=== PATIENT | female | born 1970 | race Caucasian/White ===

== ENCOUNTER → 2018-05-16 13:15 | Outpatient (CLI) | payer MEDICAID, SELFPAY ==
--- NOTE | 2018-05-16 13:22 | XR_ITS ---
XR foot wt bearing LT 3V HISTORY: ITS.REASON: pain ORDERING PHYSICIAN: Soraya Sousa DPM PATIENT AGE: 47 years COMPARISON: None FINDINGS: There is mild pes planus. No fracture or dislocation or other significant anomalies evident. There is a small calcaneal spur IMPRESSION: Pes planus otherwise negative
--- NOTE | 2018-05-16 13:22 | XR_ITS ---
XR foot wt bearing RT 3V HISTORY: ITS.REASON: pain ORDERING PHYSICIAN: Soraya Sousa DPM PATIENT AGE: 47 years COMPARISON: None FINDINGS: There is moderate pes planus with mild superior subluxation of the navicular at the talonavicular joint. A metallic screw is present at the talonavicular joint anteriorly. There are 2 large johan within the mid to anterior aspect of the calcaneus. A tunneled lucency is noted at this region as well as an oblique area of sclerosis suggesting prior osteotomy. IMPRESSION: Moderate pes planus with postsurgical changes
== END ==
PROVIDERS: PCP Internal Medicine Addiction Medicine; Visit Provider Podiatrist
DX: M79.672 Pain in left foot (principal); M79.671 Pain in right foot
CPT/HCPCS: 73630

== ENCOUNTER → 2018-06-08 12:55 | Outpatient (CLI) | payer MEDICAID, SELFPAY ==
--- NOTE | 2018-06-08 12:57 | MR_ITS ---
MR ankle RT wo/w con CLINICAL INDICATION: Pain in foot and ankle, prior reconstructive surgery with ankle collapse. ITS.REASON: pain, surgical planning ORDERING PHYSICIAN: Soraya Sousa DPM PATIENT AGE: 47 years Comparison: 05/16/2018 TECHNIQUE: Routine multiplanar multiecho sequences are performed without and with gadolinium enhancement FINDINGS: MRI ankle The anterior tibiofibular and posterior tibiofibular ligaments appear intact. The posterior talofibular ligament is intact. There is tear of the anterior talofibular ligament. The deltoid ligament appears intact. There is thinning of the peroneal brevis tendon along the distal aspect of the fibula consistent with a split tear. Artifact is present from a staple in the calcaneus. This portion of the peroneal tendons are obscured from the artifact. The tibialis posterior tendon is not identified distally consistent with tear of the posterior tibialis. The flexor digitorum longus is also not identified inferior to the medial malleoli region also suggesting tear. The flexor hallucis longus does appear to be intact. There is pes planus. Artifact is present at the talonavicular joint from prior fixation. The extensor tendons appear intact. Small amount of fluid is present at the talonavicular joint superiorly and there is some edema of the tip of the lateral malleolus. IMPRESSION: 1. Tear of the ATFL 2. Thinning of the peroneal brevis tendon along the distal aspect of the fibula suspicious for a split tear proximally. 3. Pes planus with complete tear suspected of the posterior tibialis and flexor digitorum longus
--- NOTE | 2018-06-08 12:57 | MR_ITS ---
MR foot RT wo/w con CLINICAL INDICATION: Pain, ankle collapse, ITS.REASON: pain, surgical planning ORDERING PHYSICIAN: Soraya Sousa DPM PATIENT AGE: 47 years Comparison: 05/16/2018 TECHNIQUE: Routine multiplanar multiecho sequences are performed without and with gadolinium enhancement FINDINGS: Ankle The anterior tibiofibular and posterior tibiofibular ligaments appear intact. The posterior talofibular ligament is intact. There is tear of the anterior talofibular ligament. The deltoid ligament appears intact. There is thinning of the peroneal brevis tendon along the distal aspect of the fibula consistent with a split tear. Artifact is present from a staple in the calcaneus. This portion of the peroneal tendons are obscured from the artifact. The tibialis posterior tendon is not identified distally consistent with tear of the posterior tibialis. The flexor digitorum longus is also not identified inferior to the medial malleoli region also suggesting tear. The flexor hallucis longus does appear to be intact. There is pes planus. Artifact is present at the talonavicular joint from prior fixation. The extensor tendons appear intact. Small amount of fluid is present at the talonavicular joint superiorly and there is some edema of the tip of the lateral malleolus. Foot: Small amount fluid is present in the first intermetatarsal region distally. No fracture or dislocation is evident. No bony destructive process. No abnormal enhancement. IMPRESSION: 1. Tear of the ATFL 2. Thinning of the peroneal brevis tendon along the distal aspect of the fibula suspicious for a split tear proximally. 3. Pes planus with complete tear suspected of the posterior tibialis and flexor digitorum longus 4. Intermetatarsal bursitis of the first intermetatarsal space
== END ==
PROVIDERS: Visit Provider Podiatrist
DX: M76.821 Posterior tibial tendinitis, right leg (principal); M19.071 Primary osteoarthritis, right ankle and foot; M21.41 Flat foot [pes planus] (acquired), right foot
CPT/HCPCS: 73720; 73723; A9576

== ENCOUNTER → 2018-07-04 08:44 | Outpatient (CLI) | payer MEDICAID, SELFPAY ==
--- NOTE | 2018-07-04 08:53 | XR_ITS ---
XR DEXA axial skeleton HISTORY: ITS.REASON: Surgical Planning, evaluate bone healing. ORDERING PHYSICIAN: Soraya Sousa DPM PATIENT AGE: 47 years COMPARISON: None FINDINGS: The BMD measured at the Right femoral neck is 0.877 g/cm squared with a T score of -1.2. This is considered Osteopenic according to the World Health Organization criteria. Fracture risk is Moderate. Treatment is advised. The L1 L4 density has a T score of 0.1. IMPRESSION: Osteopenia with moderate fracture risk. Treatment is advised. Suggest follow up exam june 2020
== END ==
PROVIDERS: PCP Internal Medicine Addiction Medicine; Visit Provider Podiatrist
DX: M19.071 Primary osteoarthritis, right ankle and foot (principal); M25.371 Other instability, right ankle; Z01.818 Encounter for other preprocedural examination; M21.41 Flat foot [pes planus] (acquired), right foot; E55.9 Vitamin D deficiency, unspecified; Z72.0 Tobacco use; M85.89 Other specified disorders of bone density and structure, multiple sites
CPT/HCPCS: 77080

== ENCOUNTER 2018-08-02 07:06 | Observation (INO) ==
--- NOTE | 2018-08-02 08:43 | History & Physical Report ---
*Admission Date: 08/02/18 *Chief complaint: Right PTTD *History of present illness: Mrs. Rubin is a 47F who presents for surgery for right foot pain. She is here as a referral for surgical intervention after failed right flatfoot surgery. Patient states symptoms started when she was a child. She recalls wearing bilateral custom orthotics, braces and doing stretching growing up. States a few years ago feet started to get worse. Patient denies a history of injury. 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 She can only stand for 2 hours then the pain is unbearable and she is to sit. Pain noted to outside of right foot, inside arch and pulling along back of leg. Patient reports prior treatment has included: Orthotics, bracing, taping, immobilization in boot, stretching, therapy, NSAIDs, shoe modification and surgery. Surgery by Dr. Dontae Alegria 08/18/17. Patient states "pain never fully went away after the surgery". Symptoms are "getting worse and the foot is collapsing more". She is unable to work currently. Patient presents for surgical reconstruction today, with 23 hour admission post op. [facility] History I have reviewed the patient's past medical history: Yes Medical History: Reports:: Anxiety, Depression Denies:: Cancer, Diabetes Mellitus Type 1, Diabetes Mellitus Type 2, Internal Pacemaker, MRSA, Seizures *Have you ever received a pneumonia vaccine?: No *Have you received a flu vaccine this season?: Yes Other Medical History: Reports: Hypothyroidism. Denies: Blood Transfusion Reaction Other Surgeries: Yes: Dilation and Curettage, Hysterectomy-Total. No: Pacemaker Amputation: No Fractures: No - *Social History Educational Level: Completed High School Smoking Status: Current every day smoker # Packs/Day (cigarettes): 1 Alcohol Intake: never Alcohol Intake Frequency:: other Substance Use Type: denies use *Occupational Status:: employed Housing: house Household Members: spouse *Travel in the last 8 weeks: None - Psychiatric History Expresses thoughts of harming self/others: None Suicide Plan Description: No Plan Pschychiatric History:: Reports:: Anxiety, Depression Family Hx:: No significant family history Review of Systems - Review of Systems Review of systems:: pertinent systems reviewed and negative unless documented below - Constitutional Denies chills, Denies weakness - Eyes Denies blind spots - ENT Denies abnormal hearing - *Cardiovascular Denies chest pain, Denies shortness of breath - *Respiratory Denies shortness of breath - *Gastrointestinal Denies abdominal pain - *Genitourinary Denies abnormal periods - *Musculoskeletal Reports joint pain, Reports limited joint movement - Integumentary/Breasts Denies hair loss - *Neurologic Denies abnormal walking, Denies abnormal movements, Denies behavioral changes - Psychiatric Reports anxiety, Reports depression - Endocrine Denies cold intolerance - Hematologic/Lymphatic Reports easy bruising - Allergic/Immunologic Denies itchy eyes Meds Home Medications Medication Instructions Recorded Confirmed Type diclofenac 1 % topical gel 4 g TOPICAL QID #30 g 05/16/18 08/02/18 Rx escitalopram 20 mg tablet 20 mg PO DAILY 30 Days #60 tab 05/16/18 08/02/18 History lamotrigine 200 mg tablet 200 mg PO DAILY 30 Days #30 tab 05/16/18 08/02/18 History oxybutynin chloride 5 mg tablet 5 mg PO DAILY 30 Days #90 tab 05/16/18 08/02/18 History trazodone 100 mg tablet 100 mg PO DAILY 30 Days #30 tab 05/16/18 08/02/18 History levothyroxine 100 mcg tablet 100 mcg PO DAILY #30 tab 07/12/18 08/02/18 History venlafaxine ER 150 mg 150 mg PO DAILY #30 cap 07/12/18 08/02/18 History capsule,extended release 24 hr Ergocalciferol (Vitamin D2) 50,000 unit PO QWEEK 08/01/18 08/02/18 History [Drisdol] Levocetirizine Dihydrochloride 5 mg PO DAILY 08/01/18 08/02/18 History [Xyzal] Allergies Allergy/AdvReac Type Severity Reaction Status Date / Time No Known Allergies Allergy Verified 07/12/18 14:33 Exam Vital signs and Labs for Last 24 Hours: Temp Pulse Resp BP Pulse Ox 97.4 F L 67 18 113/74 96 08/02/18 07:28 08/02/18 07:28 08/02/18 07:28 08/02/18 07:28 08/02/18 07:28 I & O for Last 24 hours: Intake & Output 07/30/18 07/31/18 08/01/18 08/02/18 11:59 11:59 11:59 11:59 Weight 190 lb 0.016 oz - *Routine HEENT Exam Head: Present: normocephalic Eye: Present: PERRL ENT: Present: mucous membranes moist - *Routine Neck Exam Present: supple - *Routine Respiratory Exam Present: accessory muscle use, CTA bilaterally - *Routine Cardiovascular Exam Present: RRR - *Routine Abdominal Exam Present: soft. Absent: tenderness - *Routine Rectal Exam Patient deferred: visual exam - *Routine Exam Patient deferred: external exam - *Routine Extremities Exam Present: pulses intact, normal capillary refill. Absent: calf tenderness - *Routine Skin Exam Present: intact, scars - *Routine Neurological Exam Present: alert, oriented X3, moving all extremities Assessment and Plan (1) Posterior tibial tendon dysfunction (PTTD) of right lower extremity Current visit: Yes Status: Acute Category: Medical Code(s): M76.821 - Posterior tibial tendinitis, right leg (2) Pain in right foot Current visit: Yes Status: Acute Category: Medical Code(s): M79.671 - Pain in right foot (3) Osteoporosis Current visit: Yes Status: Acute Category: Medical Code(s): M81.0 - Age- related osteoporosis without current pathological fracture (4) Osteoarthritis of right foot Current visit: Yes Status: Acute Category: Medical Code(s): M19.071 - Primary osteoarthritis, right ankle and foot (5) Synovitis of right foot Current visit: Yes Status: Acute Category: Medical Code(s): M65.9 - Synovitis and tenosynovitis, unspecified (6) Vitamin D deficiency Current visit: Yes Status: Acute Category: Medical Code(s): E55.9 - Vitamin D deficiency, unspecified (7) Retained orthopedic hardware Current visit: Yes Status: Acute Category: Medical Code(s): Z96.9 - Presence of functional implant, unspecified (8) Anxiety Current visit: Yes Status: Acute Category: Medical Code(s): F41.9 - Anxiety disorder, unspecified (9) Depressed Current visit: Yes Status: Acute Category: Medical Code(s): F32.9 - Major depressive disorder, single episode, unspecified (10) Gastrocnemius equinus of right lower extremity Current visit: Yes Status: Acute Category: Medical Code(s): M21.6X1 - Other acquired deformities of right foot (11) Obesity (BMI 30.0-34.9) Current visit: Yes Status: Acute Category: Medical Code(s): E66.9 - Obesity, unspecified - Assessment and plan all Dx Assessment and Plan for all problems:: Plan 23 hour admission for pain control Dr Pack - medical mgmt prn NWB RLE Maintain dressing clean dry and intact Elevate, cryo cuff behind knee Incentive spirometer PT gait training one session Has wheelchair and crutches Will need pain meds prior to d/c
--- NOTE | 2018-08-02 08:52 | Operative Note ---
Date of procedure: 08/02/18 Pre-op Diagnosis:: 1. Posterior tibial tendon dysfunction (PTTD) of right lower extremity 2. Right ankle instability 3. Osteoarthritis of right ankle and foot 4. Synovitis of right foot 5. Acquired pes planus of right foot 6. Retained orthopedic hardware 7. Gastrocnemius equinus of right lower extremity 8. History of foot surgery, 08/18/17 9. Acquired hallux valgus of right foot 10. Osteoporosis 11. Obesity (BMI 30.0-34.9) 12. Vitamin D deficiency Post-op Diagnosis:: Same + Right posterior tibial tendon tear Right flexor hallucis longus tendon tear Right peroneal tendon tear Procedure performed:: Right foot revisional surgery 1. Right triple arthrodesis 2. Right medial column stabilization: naviculo cuneiform arthrodesis 3. Right External fixation device application 4. Right peroneal tendon debridement, repair 5. Right posterior tibial and flexor digitorum longus tendon debridement, repair, transfer 6. Right hardware removal 7. Right foot synovectomy 8. Right application of amniotic membrane Surgeon:: Soraya Sousa DPM SHREDDER OPERATOR:: Vadim Peck Anesthesia: GETA, regional (RLE nerve block) Estimated blood loss (mL): 75 Clinical Note:: The patient has been instructed on the planned procedure, all risk versus benefits of the procedure discussed. These include but are not limited to: bleeding, infection, nerve and blood vessel damage, need for further surgery, delay in healing of soft tissue or bone, tendon re-rupture, failure of bones to heal, non-union, mal-union, failure of the implant, prolonged swelling, pro longed pain and recovery,permanent or recurrent deformity, CRPS/RSD, DVT and anesthetic complications, and even . No guarantees were given. All questions fully answered. The patient verbalized understanding and agreed to proceed with surgery. Written consent was obtained. Necessary labs and pre-op testing ordered: CBC, CMP, EKG, CXR. Medical clearance per MD in chart. Patient has crutches and wheelchair. She has fallen on crutches, recommend walker. We discussed DVT prophylaxis. We discussed risks and benefits and patient has agreed with postoperative Lovenox injections. Plan for 23-hour observation for pain control, postop day 1 gait training. Patient will need Rx for [place] 7.5mg # 30, Zofran 4mg # 30, Motrin 800mg # 60, Lovenox 40mg. Patient has started the vitamin D already. Patient will need walker. Operative findings:: Scar tissue and fibrotic tissue noted throughout both the medial and lateral foot. Right PT tendon torn at insertion. Scar tissue and synovitis noted b/l. Retained anchor over navicular. Retained johan x 2 over calcaneus. Very soft osteoporotic bone noted. Peroneal tendon synovitis, small longitudinal tear. Procedure took over 1.5 hours longer than the standard time secondary to scar tissue, synovitis and the revisional nature of the surgery including hardware removal. Operative note:: On this date and time patient was deemed an appropriate surgical candidate. With informed consent signed, the patient was taken to the operating theater after regional nerve block. The patient was positioned supine. General anesthesia was induced. Tourniquet was applied to the right thigh. The lower extremity was prepped and draped in normal sterile fashion. Right Triple Arthrodesis The right lower extremity was exsanguinated, the tourniquet was inflated at 250 mmHg. Attention was directed to the lateral aspect of the foot and ankle. A lazy S curvilinear incision was mapped out extending proximal and posterior to the fibula along the course of the peroneal tendons and dorsal extending over the fourth fifth met base cuboid junction. Scar, fibrotic tissue. Thin skin. D issection was carried through skin to subcutaneous tissue with care taken to maintain surgical hemostasis and safely retract neurovascular structures. Sural nerve was not identified Dissection was carried through deep fascia to the level of the bone. There was dorsal spurring and osteophytes noted along the anterior process of calcaneus to the CCJ. The talus had severe erosions. Arthritic degenerative changes noted throughout the CC subtalar and TN joints. The ankle joint was also visualized and there is dorsal spurring noted. The ATFL and CFL were both attenuated, tear to the peroneus brevis tendon with synovitis noted. Attention was directed to the medial foot where incision were mapped out extending from proximal to the medial malleolus toward the navicular cuneiform joint. No true anatomic layers noted, scar tissue. The posterior tibial tendon had been previously transferred to the FHL. They were noted with synovitis and longitudional split tear. There was also a tear at the insertion on the navicular with intact anchor. Right hardware removal Attention was directed to the calcaneus were staple x2 were noted. On the medial navicular the anchor was intact. All the hardware was removed in total without comp occasion. Right Foot and Ankle Synovectomy There was synovitic tissue noted throughout the hindfoot. There was abnormal fluid noted in the joints as well as around the peroneal, posterior tibial and FHL tendons. The thick fibrotic synovitic tissue was sharply debrided with a 15 blade. A piece of the medial PT tissue, spring ligament was thick and irregular looking. It was transected and sent as a specimen to pathology. The wounds were all flushed with copious muscle normal sterile saline. Right medial column, navicular cuneiform arthrodesis Abnormal STJ ROM noted. There was cartilage damage to the remaining subtalar joint with cortical erosions. The TN joint was severely abnormal. The navicular was displaced medially and there was a large sustentaculum francisca noted. An osteotome and curette was then used to resect the remaining cartilage of the STJ, TN and, NC joints down to the level of good healthy bleeding bone. Attention was directed to the CC joint where power instrumentation was used to resect the calcaneal cuboid joint. Curette and osteotome was then used to remove the remaining cartilage down to the level of good healthy bleeding bone. A portion of the navicular was removed from the lateral incision as well as the osteophytes. Attention was directed back medially where power rob was used to take down the subchondral bone plate and fentrate bone. Once all joints have been prepped to the level good healthy bleeding bone the wound was flushed with copious amounts of normal sterile saline. Intraoperative fluoroscopy was utilized to check position. Temporary fixation was inserted to check reduction. Intraoperative fluoroscopy was utilized and reduction was deemed to be adequate. At this point temporary fixation was removed. The wound was once again flushed. A 2-0 drill bit was then used to further fenestrate the joints down to the level good healthy bleeding bone. [employer] medical Augment was then inserted into the 2- 0 drill bits. Tensix was then used to fill the voids, particularly at the level of the TN joint. The subtalar joint was reduced and 2 partially threaded cannulated 7.0 mm beams were inserted from posterior to anterior and medial to lateral, compressing the STJ. Calcaneal axial, lateral, ankle views were obtained and deemed to be appropriate in terms of reduction and fixation. Attention was then directed to the TNJ where the foot was derotated. A small medial column plate was inserted over the NC joints, good reduction noted. A 4.5 mm cannulated screw x 2 was inserted from the medial navicular through the talus compressing the NCJ and TNJ. The calcaneal cuboid joint was then reduced and a 20 mm staple was then inserted after a cannulated 4.0mm screw. Adequate compression was noted. Intraoperative fluoroscopy was utilized to check the position and adequate reduction of the deformity was noted. Final intraop fluoroscopy was also utilized and anterior drawer and talar tilt was negative. Right Peroneal Brevis Debridement and Repair Attention was directed to the lateral incision where the peroneal brevis tendon was noted to be slightly torn longitudinally. The tendon was very stretched out. Peroneus longus was intact with synovitis noted. Utilizing 3-0 Vicryl the inside of the brevis tendon was repair to retubularize it. Wound was flushed with copious amounts of normal sterile saline. Right posterior Tibial Tendon Lengthening, Debridement and transfer to flexor hallucis longus tendon At this point the posterior tibial tendon was debrided. More proximal, the FHL was released. The PT was weaven into the FHL in a [place] fashion and reapproximated with 2-0 Vicryl in an over and over fashion. 4-0 Prolene was used to reinforce the repair. Application of Amniotic Membrane Deep closure was performed with 2-0 Vicryl on both the medial and lateral incisions. After deep closure, the amniotic membrane was inserted over the peroneal tendons. ALVIN drain inserted laterally. The subcutaneous layer was closed with 2-0 and 3-0 Vicryl, and more membrane was inserted prior to skin closure. The skin was closed with 3-0 nylon in a Horizontal mattress fashion. Skin johan used to re-enforce skin closure. The tourniquet was deflated at 2 hrs and immediate hyperemic response was noted to the digits. The tourniquet was left down for 30 mins prior to re-inflation. The tourniquet was deflated at 2 hour and immediate hyperemic response was noted to the digits. The wounds were cleansed. Right Ex Fix Application A right medical salvation frame was applied to the right lower extremity. In standard technique and without complication to all of wires were applied to the calcaneus. They were tensioned to about 90 mmHg. Next to all of wires were inserted today proximal tibia and then to the distal ankle. They were tension 225 in standard fashion. All of foot wires were not inserted. Foot plate attached to the external fixation device. X-rays confirmed position. Viaflow inserted to incisions. Xerofoam, dry sterile dressing was then applied followed by compressive dressing. The patient was awoken from anesthesia and transfer to recovery with vital signs stable and neurovascular status intact. Materials: [employer] medical salvation frame [employer] [place] medical small medial column plate x 4 locking screw 7.0mm beam x 2 4.0mm cannulated screws x 3 Staple Amniotic graft Viaflow Augment, Tensix 7 flat ALVIN drain Discharge/Plan: Obtain post op films, right foot, os calc, ankle. 23-hour observation for pain control and medical management Consult traffic controller cable PCP, Dr. Pack for medical management Maintain dressing clean dry and intact to the right lower extremity Nonweightbearing to RLE Cryo/Cuff behind the left knee Elevate on 2 pillows or foam ramp SCD and DVT prophylaxis ALVIN drain management every shift Continue Ancef every 8 hours x 3 doses PT consult in the a.m. for transitions and nonweightbearing gait training Consult case management: Patient will need walker (Patient is unable to use crutches due to her large body habitus, incoordination and fall risk) Patient will need pain medication Plan to see in the a.m. prior to clinic Patient will likely be discharged tomorrow morning Tourniquet time (min): 250 Condition: stable Disposition: observation Specimens:: Right posterior tibial tendon Complications:: None
--- NOTE | 2018-08-02 16:24 | Progress Note ---
[facility] Anesthesia Checklist - Patient Identification Patient Identification: Arm Band, Verbal (Name & ) - Structural Data Admitted From: Home Planned Operative Procedure/s: Right ankle tendon repair, modified brostrom, etc. external fixation Consent for Planned Operative Procedure(s) Verified: Yes Verified Documents: Surgical Consent, History and Physical - NPO Status Verified Time NPO: 00:00 - Chart Verification Results Verified: UA - Additional verifications Patient : No Anesthesia Reactions: No - Airway Assessment C-Spine Mobility Assessed: Yes TMJ Mobility Assessed: Yes Dentition: Poor Dentition (Missing teeth) - Neurological Assessment Level of Consciousness: Awake, Alert, Appropriate, Follows Commands Hx Seizures: No Numbness or tingling in extremities: No - Anesthesia Plan Anesthesia Risk discussed: Yes Anesthesia Plan: Verified ASA Class: II Anesthesia Type: General (with Femoral and sciatic nerve blocks) [facility] History I have reviewed the patient's past medical history: Yes Medical History: Reports:: Anxiety, Depression Denies:: Cancer, Diabetes Mellitus Type 1, Diabetes Mellitus Type 2, Internal Pacemaker, MRSA, Seizures *Have you ever received a pneumonia vaccine?: No *Have you received a flu vaccine this season?: Yes Other Medical History: Reports: Hypothyroidism. Denies: Blood Transfusion Reaction Other Surgeries: Yes: Dilation and Curettage, Hysterectomy-Total. No: Pacemaker Amputation: No Fractures: No - *Social History Educational Level: Completed High School Smoking Status: Current every day smoker # Packs/Day (cigarettes): 1 Alcohol Intake: never Alcohol Intake Frequency:: other Substance Use Type: denies use *Occupational Status:: employed Housing: house Household Members: spouse *Travel in the last 8 weeks: None - Psychiatric History Expresses thoughts of harming self/others: None Suicide Plan Description: No Plan Pschychiatric History:: Reports:: Anxiety, Depression Family Hx:: No significant family history
--- NOTE | 2018-08-02 16:25 | Progress Note ---
[facility] Anesthesia Record Part I Intake, IV Amount: 1,800 Estimated blood loss (mL): 100 Urine output (mL): 550 Blood Products used (#): none Blood Pressure: 143/61 SaO2: 93 Pulse Rate: 117 Respiratory Rate: 14 Temperature: 98.7 F Patient is:: Awake, Drowsy, Nasal O2 Stable to PACU at:: 16:05
--- NOTE | 2018-08-02 16:26 | Progress Note ---
[facility] Anesthesia Record Part II Discharge Time: 16:35 Destination: Medical Surgical Department PACU nurse assessment reviewed?: Yes Patient Condition:: Good Anesthesia Complications:: None Swallowing reflex intact?: Yes Cyanosis?: No
[2018-08-03 07:01] LABS: Basophils % 0.1 % (0.1-2.0); Eosinophils % 0.1 % (0.1-12.0); Hematocrit 35.7 % (37.0-47.0); Hemoglobin 11.2 g/dL (12.2-16.2); Lymphocytes # 2.2 K/mm3 (0.7-4.5); Lymphocytes % 21.5 % (10-50); Mean Corpuscular HGB Conc 31.4 g/dL (31.8-35.4); Mean Corpuscular Volume 101.9 fl (81-99); Mean Platelet Volume 8.3 fl (7.4-10.4); Monocytes # 0.8 K/mm3 (0.1-1.0); Neutrophils # 7.3 K/mm3 (1.8-7.8); Neutrophils % 70.3 % (37.0-80.0); Platelet Count 213 K/mm3 (142-424); Red Cell Distribution Width 12.7 % (11.5-17.5); White Blood Count 10.3 K/mm3 (4.8-10.8)
[2018-08-03 07:05] LABS: Albumin Level 2.6 gm/dL (3.4-5.0); Anion Gap 12.5 mEq/L (5-15); Bilirubin,Total 0.2 mg/dL (0.2-1.0); Calcium 7.5 mg/dL (8.5-10.1); Globulin 2.6 gm/dl (1.3-3.2); Total Protein,Serum 5.2 gm/dL (6.4-8.2)
--- NOTE | 2018-08-03 08:13 | Discharge Summary ---
General - General Admission date:: 08/02/18 Discharge date: 08/03/18 HPI HPI: Mrs. Rubin is a 47F who presents for surgery for right foot pain. She is here as a referral for surgical intervention after failed right flatfoot surgery. Patient states symptoms started when she was a child. She recalls wearing bilateral custom orthotics, braces and doing stretching growing up. States a few years ago feet started to get worse. Patient denies a history of injury. 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 She can only stand for 2 hours then the pain is unbearable and she is to sit. Pain noted to outside of right foot, inside arch and pulling along back of leg. Patient reports prior treatment has included: Orthotics, bracing, taping, immobilization in boot, stretching, therapy, NSAIDs, shoe modification and surgery. Surgery by Dr. Dontae Alegria 08/18/17. Patient states "pain never fully went away after the surgery". Symptoms are "getting worse and the foot is collapsing more". She is unable to work currently. Patient presents for surgical reconstruction today, with 23 hour admission post op. Hospital Course Hospital Course: Patient had an uneventful hospital course. She was admitted yesterday after surgery for 23-hour observation for pain management. Prior to surgery she had a femoral sciatic nerve block. After surgery in PACU she had a popliteal nerve block. Pain is been well controlled. She is getting a session of physical therapy first transitions prior to discharge. The ex-fix dressing was changed prior to discharge. ALVIN Drain left intact. Objective Vital signs: Temp Pulse Resp BP Pulse Ox 98.4 F 84 16 94/40 L 95 08/03/18 08:00 08/03/18 08:00 08/03/18 08:00 08/03/18 08:00 08/03/18 08:00 - *Routine HEENT Exam Head: Present: normocephalic Eye: Present: EOMI, PERRL ENT: Present: mucous membranes moist - *Routine Neck Exam Present: supple - *Routine Respiratory Exam Present: accessory muscle use, CTA bilaterally - *Routine Cardiovascular Exam Present: RRR - *Routine Abdominal Exam Present: soft. Absent: tenderness - *Routine Rectal Exam Patient deferred: visual exam - *Routine Exam Patient deferred: external exam - *Routine Extremities Exam Present: edema, pulses intact, normal capillary refill. Absent: calf tenderness - *Routine Skin Exam Present: intact - *Routine Neurological Exam Present: alert, oriented X3 - Detailed Lower Extremity Exam Comments: Right lower extremity dressing intact. Ex-fix intact. ALVIN drain intact to the lateral incision. Blood saturating the posterior heel. Dressing change. Sutures and johan are intact with no signs of infection. No calf or thigh pain noted bilaterally. Results Labs on day of discharge: Labs from last 24 hours 08/03/18 08/03/18 08/02/18 06:15 06:09 09:20 WBC 10.3 RBC 3.50 L Hgb 11.2 L Hct 35.7 L MCV 101.9 H MCH 32.0 H MCHC 31.4 L RDW 12.7 Plt Count 213 MPV 8.3 Neut % (Auto) 70.3 Lymph % (Auto) 21.5 [place] % (Auto) 8.0 Eos % (Auto) 0.1 Baso % (Auto) 0.1 Neut # (Auto) 7.3 Lymph # (Auto) 2.2 [place] # (Auto) 0.8 Eos # (Auto) 0.0 Baso # (Auto) 0.0 Sodium 141 Potassium 3.5 Chloride 107 Carbon Dioxide 25 Anion Gap 12.5 BUN 14 Creatinine 0.72 Estimated Creat Clear 153 Estimated GFR 88 Est GFR ( Amer) 106 Glucose 100 Calcium 7.5 L Total Bilirubin 0.2 AST 20 ALT 23 Alkaline Phosphatase 60 Total Protein 5.2 L Albumin 2.6 L Globulin 2.6 Albumin/Globulin Ratio 1.0 L Urine Color Yellow Urine Appearance Clear Urine pH 8.0 Ur Specific [place] 1.010 Urine Protein Negative Urine Glucose (UA) Negative Urine Ketones Negative Urine Blood Negative Urine Nitrate Negative Urine Bilirubin Negative Urine Urobilinogen 0.2 Ur Leukocyte Esterase Negative Ur Squamous Epith Cells Occasional Urine Bacteria 1+ DS: Diagnosis - Discharge Diagnosis (1) Posterior tibial tendon dysfunction (PTTD) of right lower extremity Status: Acute (2) Pain in right foot Status: Acute (3) Osteoporosis Status: Acute (4) Osteoarthritis of right foot Status: Acute (5) Synovitis of right foot Status: Acute (6) Vitamin D deficiency Status: Acute (7) Retained orthopedic hardware Status: Acute (8) Anxiety Status: Acute (9) Depressed Status: Acute (10) Gastrocnemius equinus of right lower extremity Status: Acute (11) Obesity (BMI 30.0-34.9) Status: Acute Discharge Plan - Patient Discharge Instructions ACTIVITY: Limited activity DIET: advance to your usual diet Additional Instructions: Discharge/Plan: Maintain dressing clean dry and intact to the right lower extremity Nonweightbearing to RLE Cryo/Cuff behind the left knee Elevate on 2 pillows or foam ramp SCD and DVT prophylaxis ALVIN drain management Consult case management: Patient will need walker (Patient is unable to use crutches due to her large body habitus, incoordination and fall risk) Patient will need pain medication: [place] 7.5/325, Flexeril e-Rx Lovenox, Zofran, Motrin Patient Instructions: DI for Surgical Site Infection, DI for Arthrodesis of the Foot, How to Care for Your External Fixation Device - Follow up Plan Follow up with: Soraya Sousa DPM [Staff Physician] - Disposition: Home, Self-Assisted Medications: Home Medications Medication Instructions Recorded Confirmed Type diclofenac 1 % topical gel 4 g TOPICAL QID #30 g 05/16/18 08/02/18 Rx escitalopram 20 mg tablet 20 mg PO HS 30 Days #60 tab 05/16/18 08/02/18 History lamotrigine 200 mg tablet 200 mg PO HS 30 Days #30 tab 05/16/18 08/02/18 History oxybutynin chloride 5 mg tablet 5 mg PO HS 30 Days #90 tab 05/16/18 08/02/18 History trazodone 100 mg tablet 100 mg PO HS 30 Days #30 tab 05/16/18 08/02/18 History levothyroxine 100 mcg tablet 100 mcg PO DAILY #30 tab 07/12/18 08/02/18 History venlafaxine ER 150 mg 150 mg PO HS #30 cap 07/12/18 08/02/18 History capsule,extended release 24 hr Ergocalciferol (Vitamin D2) 50,000 unit PO QWEEK 08/01/18 08/02/18 History [Drisdol] Levocetirizine Dihydrochloride 5 mg PO HS 08/01/18 08/02/18 History [Xyzal] Enoxaparin Sodium [Lovenox 40 mg SQ DAILY #60 syringe 08/03/18 Rx 40mg/0.4mL syringe] cephalexin 500 mg capsule 500 mg PO Q12H 21 Days #42 cap 08/03/18 Rx enoxaparin 40 mg/0.4 mL 40 mg SQ QDAY 60 Days #24 ml 08/03/18 Rx subcutaneous syringe ibuprofen 800 mg tablet 800 mg PO BID #60 tab 08/03/18 Rx ondansetron 4 mg disintegrating 4 mg PO Q6H #30 tab 08/03/18 Rx tablet Prescriptions/Medication Reconciliation: New Enoxaparin Sodium [Lovenox 40mg/0.4mL syringe] 40 mg SQ DAILY #60 syringe Continued lamotrigine 200 mg tablet 200 mg PO HS 30 Days #30 tab oxybutynin chloride 5 mg tablet 5 mg PO HS 30 Days #90 tab diclofenac 1 % topical gel 4 g TOPICAL QID #30 g levothyroxine 100 mcg tablet 100 mcg PO DAILY #30 tab escitalopram 20 mg tablet 20 mg PO HS 30 Days #60 tab trazodone 100 mg tablet 100 mg PO HS 30 Days #30 tab venlafaxine ER 150 mg capsule,extended release 24 hr 150 mg PO HS #30 cap Levocetirizine Dihydrochloride [Xyzal] 5 mg PO HS Ergocalciferol (Vitamin D2) [Drisdol] 50,000 unit PO QWEEK No Action ibuprofen 800 mg tablet 800 mg PO BID #60 tab cephalexin 500 mg capsule 500 mg PO Q12H 21 Days #42 cap ondansetron 4 mg disintegrating tablet 4 mg PO Q6H #30 tab enoxaparin 40 mg/0.4 mL subcutaneous syringe 40 mg SQ QDAY 60 Days #24 ml
--- NOTE | 2018-08-03 09:06 | Pharmacy Consult Notes ---
[facility] VTE Monitoring - Patient Demographics Admission date: 08/02/18 Report Date: 08/03/18 Time: 09:06 Allergies/Adverse Reactions: Patient Allergies No Known Allergies Allergy (Verified 07/12/18 14:33) Height: 1.63 m Weight: 98.061 kg Patient Problems: Current Active Problems (Updated 08/02/18 @ 08:49 by Soraya Sousa DPM) Posterior tibial tendon dysfunction (PTTD) of right lower extremity (Acute) Pain in right foot (Acute) Osteoporosis (Acute) Osteoarthritis of right foot (Acute) Synovitis of right foot (Acute) Vitamin D deficiency (Acute) Retained orthopedic hardware (Acute) Anxiety (Acute) Depressed (Acute) Gastrocnemius equinus of right lower extremity (Acute) Obesity (BMI 30.0-34.9) (Acute) - VTE Risk Labs: VTE Related Lab Results Hgb 11.2 g/dL (12.2-16.2) L 08/03/18 06:09 Hct 35.7 % (37.0-47.0) L 08/03/18 06:09 Plt Count 213 K/mm3 (142-424) 08/03/18 06:09 BUN 14 mg/dL (7-18) 08/03/18 06:15 Creatinine 0.72 mg/dL (0.55-1.02) 08/03/18 06:15 Estimated Creat Clear 153 mL/min (50-200) 08/03/18 06:15 VTE Score: 4 VTE Risk Level: Low Risk - Prophylaxis VTE Prophylaxis Ordered?: Yes Types of VTE Prophylaxis: IPCS Thigh High, Pharmacological Location of Applied Device: Left Leg Pharmacologic Type: Enoxaparin
--- NOTE | 2018-08-03 09:39 | Consult Report ---
*Admission Date: 08/02/18 *History of present illness: 47-year-old female patient inpatient for complex right foot surgery. Resting qu ietly in bed, reports pain has been under control. Denies any further needs or concerns. Will be discharged this afternoon, she is agreeable to plan. We will follow-up with her primary care physician and Dr. Carrion [facility] History I have reviewed the patient's past medical history: Yes Medical History: Reports:: Anxiety, Depression Denies:: Cancer, Diabetes Mellitus Type 1, Diabetes Mellitus Type 2, Internal Pacemaker, MRSA, Seizures *Have you ever received a pneumonia vaccine?: No *Have you received a flu vaccine this season?: Yes Other Medical History: Reports: Hypothyroidism. Denies: Blood Transfusion Reaction Other Surgeries: Yes: Dilation and Curettage, Hysterectomy-Total, Hysterectomy- Partial. No: Pacemaker Amputation: No Fractures: No - *Social History Educational Level: Completed High School Smoking Status: Current every day smoker Tobacco Type: cigarettes # Packs/Day (cigarettes): 1 Alcohol Intake: never Alcohol Intake Frequency:: other Substance Use Type: denies use *Occupational Status:: employed Housing: house Household Members: spouse *Travel in the last 8 weeks: None - Psychiatric History Expresses thoughts of harming self/others: None Suicide Plan Description: No Plan Pschychiatric History:: Reports:: Anxiety, Depression Family Hx:: No significant family history Review of Systems - Review of Systems Review of systems:: pertinent systems reviewed and negative unless documented b elow - Constitutional Denies anorexia, Denies body ache(s) - Eyes Denies blurry vision, Denies change in vision - ENT Denies abnormal hearing, Denies ear pain - *Cardiovascular Denies chest pain, Denies shortness of breath - *Respiratory Denies chest congestion, Denies shortness of breath - *Gastrointestinal Denies abdominal pain - *Musculoskeletal Denies back pain - *Neurologic Denies abnormal walking, Denies abnormal hearing, Denies abnormal movements, Denies behavioral changes, Denies weakness - Psychiatric Denies hopelessness, Denies memory loss - Endocrine Denies cold intolerance, Denies rapid, pounding, or irregular heartbeat Meds Home Medications Medication Instructions Recorded Confirmed Type diclofenac 1 % topical gel 4 g TOPICAL QID #30 g 05/16/18 08/02/18 Rx escitalopram 20 mg tablet 20 mg PO HS 30 Days #60 tab 05/16/18 08/02/18 History lamotrigine 200 mg tablet 200 mg PO HS 30 Days #30 tab 05/16/18 08/02/18 History oxybutynin chloride 5 mg tablet 5 mg PO HS 30 Days #90 tab 05/16/18 08/02/18 History trazodone 100 mg tablet 100 mg PO HS 30 Days #30 tab 05/16/18 08/02/18 History levothyroxine 100 mcg tablet 100 mcg PO DAILY #30 tab 07/12/18 08/02/18 History venlafaxine ER 150 mg 150 mg PO HS #30 cap 07/12/18 08/02/18 History capsule,extended release 24 hr Ergocalciferol (Vitamin D2) 50,000 unit PO QWEEK 08/01/18 08/02/18 History [Drisdol] Levocetirizine Dihydrochloride 5 mg PO HS 08/01/18 08/02/18 History [Xyzal] Enoxaparin Sodium [Lovenox 40 mg SQ DAILY #60 syringe 08/03/18 Rx 40mg/0.4mL syringe] cephalexin 500 mg capsule 500 mg PO Q12H 21 Days #42 cap 08/03/18 Rx enoxaparin 40 mg/0.4 mL 40 mg SQ QDAY 60 Days #24 ml 08/03/18 Rx subcutaneous syringe ibuprofen 800 mg tablet 800 mg PO BID #60 tab 08/03/18 Rx ondansetron 4 mg disintegrating 4 mg PO Q6H #30 tab 08/03/18 Rx tablet Allergies Allergy/AdvReac Type Severity Reaction Status Date / Time No Known Allergies Allergy Verified 07/12/18 14:33 Exam Vital signs and Labs for Last 24 Hours: Temp Pulse Resp BP Pulse Ox 98.4 F 84 16 94/40 L 95 08/03/18 08:00 08/03/18 08:00 08/03/18 08:00 08/03/18 08:00 08/03/18 08:00 Laboratory Results - last 24 hr 08/02/18 09:20: Urine Color Yellow, Urine Appearance Clear, Urine pH 8.0, Ur Specific [place] 1.010, Urine Protein Negative, Urine Glucose (UA) Negative, Uri ne Ketones Negative, Urine Blood Negative, Urine Nitrate Negative, Urine Bilirubin Negative, Urine Urobilinogen 0.2, Ur Leukocyte Esterase Negative, Ur Squamous Epith Cells Occasional, Urine Bacteria 1+ 08/03/18 06:09: WBC 10.3, RBC 3.50 L, Hgb 11.2 L, Hct 35.7 L, MCV 101.9 H, MCH 32.0 H, MCHC 31.4 L, RDW 12.7, Plt Count 213, MPV 8.3, Neut % (Auto) 70.3, Lymph % (Auto) 21.5, [place] % (Auto) 8.0, Eos % (Auto) 0.1, Baso % (Auto) 0.1, Neut # (Auto) 7.3, Lymph # (Auto) 2.2, [place] # (Auto) 0.8, Eos # (Auto) 0.0, Baso # (Auto) 0.0 08/03/18 06:15: Sodium 141, Potassium 3.5, Chloride 107, Carbon Dioxide 25, Anion Gap 12.5, BUN 14, Creatinine 0.72, Estimated Creat Clear 153, Estimated GFR 88, Est GFR ( Amer) 106, Glucose 100, Calcium 7.5 L, Total Bilirubin 0.2, AST 20, ALT 23, Alkaline Phosphatase 60, Total Protein 5.2 L, Albumin 2.6 L , Globulin 2.6, Albumin/Globulin Ratio 1.0 L I & O for Last 24 hours: Intake & Output 07/31/18 08/01/18 08/02/18 08/03/18 23:59 23:59 23:59 23:59 Intake Total 2160 / 2160 620 / 620 Output Total 650 / 650 407 / 407 Balance 1510 / 1510 213 / 213 Weight 190 lb 0.016 oz 208 lb 216 lb 3 oz - Constitutional no acute distress - *Routine HEENT Exam Head: Present: normocephalic Eye: Present: EOMI, PERRL, normal accommodation ENT: Present: mucous membranes dry - *Routine Neck Exam Present: supple, full ROM, trachea midline. Absent: JVD - *Routine Respiratory Exam Present: CTA bilaterally. Absent: accessory muscle use, wheezes - *Routine Cardiovascular Exam Present: RRR. Absent: JVD - *Routine Abdominal Exam Present: soft, normoactive bowel sounds. Absent: tenderness - *Routine Extremities Exam Present: tenderness Comments: RLE w/ wrap and hardware - Routine Back/Spine/Pelvis Exam Back/Spine: Present: full ROM. Absent: CVA tenderness - *Routine Skin Exam Present: intact. Absent: erythema - *Routine Neurological Exam Present: alert, oriented X3, CN II-XII intact - Routine Psychiatric Exam Present: normal affect, normal thought process Internal Medicine - CN: Reslt - Labs CBC & Chem 7: 08/03/18 06:09 08/03/18 06:15 Labs: Short CBC 08/03/18 Range/Units 06:09 WBC 10.3 (4.8-10.8) K/mm3 Hgb 11.2 L (12.2-16.2) g/dL Hct 35.7 L (37.0-47.0) % Plt Count 213 (142-424) K/mm3 BMP 08/03/18 06:15 Sodium 141 Potassium 3.5 Chloride 107 Carbon Dioxide 25 BUN 14 Creatinine 0.72 Glucose 100 Calcium 7.5 L Liver Function 08/03/18 Range/Units 06:15 Total Bilirubin 0.2 (0.2-1.0) mg/dL AST 20 (15-37) U/L ALT 23 (12-78) U/L Alkaline Phosphatase 60 (46-116) U/L Albumin 2.6 L (3.4-5.0) gm/dL Urine 08/02/18 Range/Units 09:20 Urine Color Yellow (Yellow) Urine Appearance Clear (Clear) Urine pH 8.0 (5.0-8.5) Ur Specific [place] 1.010 (1.005-1.030) Urine Protein Negative (Negative) Urine Glucose (UA) Negative (Negative) Assessment and Plan (1) Posterior tibial tendon dysfunction (PTTD) of right lower extremity Current visit: Yes Status: Acute Category: Medical Code(s): M76.821 - Posterior tibial tendinitis, right leg (2) Pain in right foot Current visit: Yes Status: Acute Category: Medical Code(s): M79.671 - Pain in right foot (3) Osteoporosis Current visit: Yes Status: Acute Category: Medical Code(s): M81.0 - Age- related osteoporosis without current pathological fracture (4) Osteoarthritis of right foot Current visit: Yes Status: Acute Category: Medical Code(s): M19.071 - Primary osteoarthritis, right ankle and foot (5) Synovitis of right foot Current visit: Yes Status: Acute Category: Medical Code(s): M65.9 - Synovitis and tenosynovitis, unspecified (6) Vitamin D deficiency Current visit: Yes Status: Acute Category: Medical Code(s): E55.9 - Vitamin D deficiency, unspecified (7) Retained orthopedic hardware Current visit: Yes Status: Acute Category: Medical Code(s): Z96.9 - Presence of functional implant, unspecified (8) Anxiety Current visit: Yes Status: Acute Category: Medical Code(s): F41.9 - Anxiety disorder, unspecified (9) Depressed Current visit: Yes Status: Acute Category: Medical Code(s): F32.9 - Major depressive disorder, single episode, unspecified (10) Gastrocnemius equinus of right lower extremity Current visit: Yes Status: Acute Category: Medical Code(s): M21.6X1 - Other acquired deformities of right foot (11) Obesity (BMI 30.0-34.9) Current visit: Yes Status: Acute Category: Medical Code(s): E66.9 - Obesity, unspecified - Assessment and plan all Dx Assessment and Plan for all problems:: Rounded with Dr. Pack, orders per Dr. Pack
== END 2018-08-03 12:37 | disposition home or self-care (01) ==
LOC: OR 07:06 → 2ND 07:06
PROVIDERS: ADMIT Podiatrist; ATTEND Podiatrist
CPT/HCPCS: 36415; 73610; 73620; 73630; 73650; 76000; 80053; 81001; 85025; 87086; 96374; 97161; C1713; C1762; C1776; G0378; J2405

== ENCOUNTER → 2018-09-07 10:31 | Outpatient (CLI) | payer MEDICAID, SELFPAY ==
--- NOTE | 2018-09-07 10:36 | XR_ITS ---
XR foot wt bearing RT 3V HISTORY: Follow-up ORIF ITS.REASON: post-op ORDERING PHYSICIAN: Soraya Sousa DPM PATIENT AGE: 47 years COMPARISON: 08/02/2018 FINDINGS: External fixator remains in place. Prior subtalar fusion. Multiple screws and bone plate remain in place as before mostly obscured by the overlying external fixator. There does appear to be good alignment. No change in the bony hardware. IMPRESSION: Good alignment status post subtalar fusion, calcaneocuboid fusion, and navicular cuneiform fusion with external fixator in place
--- NOTE | 2018-09-07 10:36 | XR_ITS ---
XR ankle wt bearing RT min 3V HISTORY: Follow-up ORIF with external fixator ITS.REASON: Simulated Weight Bearing ORDERING PHYSICIAN: Soraya Sousa DPM PATIENT AGE: 47 years Comparison: 08/02/2018 FINDINGS: External fixator remains in place with cross wires in the mid and distal tib-fib region and the calcaneal area. Prior ORIF with fusion of the subtalar joint and first metatarsal tarsal joint. There appears to be good alignment. Much of the bones of the feet are secured by the overlying fixator device. Surgical clips are present medially and laterally at the ankle. IMPRESSION: No change status post mid and hindfoot fusion with external fixator in place
== END ==
PROVIDERS: PCP Internal Medicine Addiction Medicine; Visit Provider Podiatrist
DX: Z98.890 Other specified postprocedural states (principal)
CPT/HCPCS: 73610; 73630

== ENCOUNTER → 2018-09-22 08:57 | Outpatient (CLI) | payer MEDICAID, SELFPAY ==
[2018-09-22 09:39] LABS: Basophils % 0.1 % (0.1-2.0); Eosinophils % 0.1 % (0.1-12.0); Hemoglobin 14.2 g/dL (12.2-16.2); Lymphocytes # 1.5 K/mm3 (0.7-4.5); Lymphocytes % 18.3 % (10-50); Mean Corpuscular HGB Conc 32.3 g/dL (31.8-35.4); Mean Corpuscular Hemoglobin 32.2 pg (27.0-31.2); Mean Corpuscular Volume 99.7 fl (81-99); Mean Platelet Volume 7.8 fl (7.4-10.4); Monocytes # 0.5 K/mm3 (0.1-1.0); Monocytes % 5.6 % (1.7-9.3); Neutrophils # 6.2 K/mm3 (1.8-7.8); Platelet Count 324 K/mm3 (142-424); Red Blood Count 4.41 M/mm3 (4.20-5.40); Red Cell Distribution Width 12.9 % (11.5-17.5); White Blood Count 8.2 K/mm3 (4.8-10.8)
[2018-09-22 10:32] LABS: Anion Gap 12.6 mEq/L (5-15); Blood Urea Nitrogen 9 mg/dL (7-18); C-Reactive Protein 1.1 mg/dL (0.0-0.9); Calcium 9.1 mg/dL (8.5-10.1); Carbon Dioxide 27 mmol/L (21.0-32.0); Chloride 104 mmol/L (98-107); Creatinine,Serum 0.87 mg/dL (0.55-1.02); Estimated Glomerular Filt Rate 70 ml/min (>60); GFR (African American) 85 ML/MIN (>60); Glucose 82 mg/dL (74-106); Potassium 4.6 mmoL/L (3.5-5.1); Sodium 139 mmol/L (136-145)
[2018-09-22 13:29] LABS: Erythrocyte Sedimentation Rate 15 mm/hr (0-20)
[2018-09-24 16:27] LABS: Vitamin D 25 Hydroxy 20.4 ng/mL (30.0-100.0)
== END ==
PROVIDERS: Visit Provider Podiatrist
DX: Z01.818 Encounter for other preprocedural examination (principal); E55.9 Vitamin D deficiency, unspecified
CPT/HCPCS: 36415; 80048; 82652; 85025; 85651; 86140

== ENCOUNTER → 2018-10-11 07:58 | Outpatient (CLI) | payer MEDICAID, SELFPAY ==
--- NOTE | 2018-10-11 08:02 | XR_ITS ---
PROCEDURE: XR FOOT WT BEARING RT 3V CLINICAL INDICATION: postop views Follow-up surgery COMPARISON: XR FOOT RT MIN 3V from 09/27/2018 FINDINGS: S/p subtalar fusion with talocalcaneal, calcaneal cuboid, talonavicular, and navicular cuneiform fusion as previously described. No change in the orthopedic hardware. There remains good alignment. No bony fusion evident in the subtalar region at this time. IMPRESSION: No change status post hindfoot and midfoot fusion Dictated by: Harry Saldaña MD 10/11/2018 09:42 Signed by: <Electronically signed by Harry Saldaña MD in [place]> 10/11/2018 09:42
== END ==
PROVIDERS: PCP Internal Medicine Addiction Medicine; Visit Provider Podiatrist
DX: Z98.890 Other specified postprocedural states (principal); M79.671 Pain in right foot
CPT/HCPCS: 73630

== ENCOUNTER → 2018-11-02 14:17 | Outpatient (CLI) | payer MEDICAID, SELFPAY ==
--- NOTE | 2018-11-02 14:21 | XR_ITS ---
PROCEDURE: XR FOOT WT BEARING RT 3V CLINICAL INDICATION: fracture/dislocation Follow-up ORIF/fusion COMPARISON: [id number] XR foot wt bearing RT 3V from 05/16/2018 [id number] XR foot wt bearing LT 3V from 05/16/2018 XR FOOT RT MIN 3V from 09/27/2018 XR FOOT WT BEARING RT 3V from 10/11/2018 FINDINGS: The splint has been removed. Status post talocalcaneal, calcaneocuboid, talonavicular, and navicular cuneiform arthrodesis with good alignment of the previously described hardware and good alignment of the bony structures. The talocalcaneal joint and talonavicular joints appear fused. There remains joint space noted at the calcaneal cuneiform joint and navicular cuboid joint. Other findings:None. IMPRESSION: Good alignment status post hindfoot and midfoot arthrodesis as described above Dictated by: Harry Saldaña MD 11/02/2018 17:35 Electronically signed by Harry Saldaña MD in [place] 11/02/2018 17:35
== END ==
PROVIDERS: PCP Internal Medicine Addiction Medicine; Visit Provider Podiatrist
DX: Z98.890 Other specified postprocedural states (principal); S82.61XA Displaced fracture of lateral malleolus of right fibula, initial encounter for closed fracture
CPT/HCPCS: 73630

== ENCOUNTER → 2018-11-02 15:56 | Outpatient (CLI) | payer MEDICAID, SELFPAY ==
[2018-11-02 16:11] LABS: Basophils % 0.1 % (0.1-2.0); Eosinophils # 0.1 K/mm3 (0.0-0.4); Hematocrit 43.8 % (37.0-47.0); Hemoglobin 13.7 g/dL (12.2-16.2); Lymphocytes # 2.4 K/mm3 (0.7-4.5); Lymphocytes % 18.5 % (10-50); Mean Corpuscular HGB Conc 31.2 g/dL (31.8-35.4); Mean Corpuscular Volume 99.7 fl (81-99); Monocytes # 0.5 K/mm3 (0.1-1.0); Monocytes % 4.2 % (1.7-9.3); Neutrophils # 9.6 K/mm3 (1.8-7.8); Neutrophils % 76.1 % (37.0-80.0); Platelet Count 361 K/mm3 (142-424); Red Cell Distribution Width 13.7 % (11.5-17.5); White Blood Count 12.7 K/mm3 (4.8-10.8)
[2018-11-02 17:01] LABS: Erythrocyte Sedimentation Rate 16 mm/hr (0-20)
[2018-11-02 17:32] LABS: Alanine Aminotransferase 19 U/L (12-78); Albumin Level 3.5 gm/dL (3.4-5.0); Albumin/Globulin Ratio 1.1 (1.1-1.8); Alkaline Phosphatase 110 U/L (46-116); Aspartate Amino Transferase 9 U/L (15-37); Bilirubin,Total 0.1 mg/dL (0.2-1.0); Blood Urea Nitrogen 8 mg/dL (7-18); Carbon Dioxide 26 mmol/L (21.0-32.0); Chloride 104 mmol/L (98-107); Creatinine,Serum 0.84 mg/dL (0.55-1.02); Estimated Glomerular Filt Rate 73 ml/min (>60); GFR (African American) 88 ML/MIN (>60); Globulin 3.1 gm/dl (1.3-3.2); Glucose 80 mg/dL (74-106); Sodium 138 mmol/L (136-145); Total Protein,Serum 6.6 gm/dL (6.4-8.2)
== END ==
PROVIDERS: Visit Provider Podiatrist
DX: L03.115 Cellulitis of right lower limb (principal); Z98.890 Other specified postprocedural states
CPT/HCPCS: 36415; 80053; 85025; 85651; 86140; 87070; 87186; 87205

== ENCOUNTER → 2018-11-27 09:00 | Outpatient (CLI) | payer MEDICAID, SELFPAY ==
--- NOTE | 2018-11-27 09:07 | XR_ITS ---
PROCEDURE: XR FOOT WT BEARING RT 3V CLINICAL INDICATION: Post-op Follow-up surgery/triple fusion COMPARISON: [id number] XR foot wt bearing RT 3V from 05/16/2018 XR FOOT RT MIN 3V from 09/27/2018 XR FOOT WT BEARING RT 3V from 10/11/2018 XR FOOT WT BEARING RT 3V from 11/02/2018 FINDINGS: There is diffuse osteopenia. Status post talocalcaneal, calcaneocuboid, talonavicular, and navicular cuneiform fusion. The anterior subtalar joint space is less apparent as is the talonavicular joint. There is mild soft tissue swelling along the dorsal aspect of the foot. No acute fracture or dislocation Other findings:None. IMPRESSION: Status post triple arthrodesis with good alignment as described above Dictated by: Harry Saldaña MD 11/27/2018 09:34 Electronically signed by Harry Saldaña MD in [place] 11/27/2018 09:34
== END ==
PROVIDERS: PCP Internal Medicine Addiction Medicine; Visit Provider Podiatrist
DX: Z98.890 Other specified postprocedural states (principal); M79.671 Pain in right foot
CPT/HCPCS: 73630

== ENCOUNTER → 2019-01-16 09:07 | Outpatient (CLI) | payer MEDICAID, SELFPAY ==
--- NOTE | 2019-01-16 09:15 | XR_ITS ---
PROCEDURE: XR FOOT WT BEARING RT 3V CLINICAL INDICATION: simulated weight bearing Foot pain, prior fusion COMPARISON: XR FOOT RT MIN 3V from 09/27/2018 XR FOOT WT BEARING RT 3V from 10/11/2018 XR FOOT WT BEARING RT 3V from 11/02/2018 XR FOOT WT BEARING RT 3V from 11/27/2018 FINDINGS: There is diffuse osteopenia. Prior talocalcaneal, talonavicular, calcaneocuboid, and navicular cuneiform fusion with good alignment. There are postsurgical changes with multiple lucencies through the mid distal aspect of the calcaneus. There is mild pes planus. Lucencies are also present through the distal tibia and fibular shaft. IMPRESSION: Prior fusion/arthrodesis of the hind and midfoot as described above not significantly changed Dictated by: Harry Saldaña MD 01/16/2019 15:13 Electronically signed by Harry Saldaña MD in [place] 01/16/2019 15:13
== END ==
PROVIDERS: PCP Internal Medicine Addiction Medicine; Visit Provider Podiatrist
DX: M79.671 Pain in right foot (principal); Z98.890 Other specified postprocedural states
CPT/HCPCS: 73630

== ENCOUNTER → 2019-04-30 10:18 | Outpatient (CLI) | payer MEDICAID, SELFPAY ==
--- NOTE | 2019-04-30 10:21 | XR_ITS ---
PROCEDURE: XR FOOT WT BEARING LT 3V CLINICAL INDICATION: pain Fall with injury and pain COMPARISON: [id number] XR foot wt bearing LT 3V from 05/16/2018 XR FOOT WT BEARING RT 3V from 10/11/2018 XR FOOT WT BEARING RT 3V from 11/02/2018 XR FOOT WT BEARING RT 3V from 11/27/2018 XR FOOT WT BEARING RT 3V from 01/16/2019 FINDINGS: No fracture or dislocation. No lytic or blastic change. There is normal mineralization. The joint spaces are well-preserved. No significant degenerative/arthritic changes. No erosive changes evident. Other findings:There is a type 2 os navicularis without sclerosis at the ununited segment. There is mild pes planus. There is a small calcaneal spur IMPRESSION: Mild pes planus. Os navicularis type 2 Otherwise negative Dictated by: Harry Saldaña MD 04/30/2019 10:47 Electronically signed by Harry Saldaña MD in [place] 04/30/2019 10:47
--- NOTE | 2019-04-30 10:21 | XR_ITS ---
PROCEDURE: XR ANKLE WT BEARING LT MIN 3V CLINICAL INDICATION: pain Injury with pain with bruising COMPARISON: [id number] XR foot wt bearing LT 3V from 05/16/2018 XR FOOT WT BEARING LT 3V from 04/30/2019 FINDINGS: No definite fracture or dislocation is evident. On the lateral view there is a curvilinear area thin in nature along the posterior aspect of the tibia/fibular region. This was probably present on a prior foot film of 05/16/2018 and may only represent a ridge of sclerosis. IMPRESSION: No acute findings. Dictated by: Harry Saldaña MD 04/30/2019 10:45 Electronically signed by Harry Saldaña MD in [facility] 04/30/2019 10:45
--- NOTE | 2019-04-30 10:21 | XR_ITS ---
PROCEDURE: XR ANKLE WT BEARING RT MIN 3V CLINICAL INDICATION: postop views Follow-up surgery/ORIF COMPARISON: XR ANKLE RT MIN 3V from 09/27/2018 XR FOOT WT BEARING RT 3V from 01/16/2019 XR FOOT WT BEARING RT 3V from 04/30/2019 FINDINGS: There is some mild lateral tilting of the talus with slight decrease in the joint space laterally. There is a prominent posterior talar process with some mild sclerosis along the superior aspect of the posterior talar process with sclerosis of the talus at this region as well. There has been a prior midfoot fusion with calcaneocuboid staple, oblique lag screws through the medial tarsal region at the medial cuneiform and navicular area extending posteriorly and 2 screws at the posterior talocalcaneal joint with fusion. There is mild pes planus. There is a prominent posterior talar process. No significant change compared to the previous exam. IMPRESSION: Status post midfoot fusion with good alignment as described above with no significant change Dictated by: aHrry Saldaña MD 04/30/2019 10:51 Electronically signed by Harry Saldaña MD in [facility] 04/30/2019 10:51
== END ==
PROVIDERS: PCP Internal Medicine Addiction Medicine; Visit Provider Podiatrist
DX: Z98.890 Other specified postprocedural states (principal); M79.672 Pain in left foot; M79.671 Pain in right foot; M25.572 Pain in left ankle and joints of left foot; M25.571 Pain in right ankle and joints of right foot
CPT/HCPCS: 73610; 73630

== ENCOUNTER → 2019-12-20 09:53 | Outpatient (CLI) | payer MEDICAID, SELFPAY ==
--- NOTE | 2019-12-20 09:57 | XR_ITS ---
PROCEDURE: XR ANKLE WT BEARING LT MIN 3V CLINICAL INDICATION: follow up Pain COMPARISON: DX [id number] XR foot wt bearing LT 3V from 05/16/2018 CR XR ANKLE RT MIN 3V from 09/27/2018 CR XR ANKLE WT BEARING LT MIN 3V from 04/30/2019 CR XR FOOT WT BEARING LT 3V from 12/20/2019 FINDINGS: No fracture or dislocation. No lytic or blastic change. There is a type 2 os navicularis. There is pes planus. IMPRESSION: No change pes planus with type 2 os navicularis Dictated by: Harry Saldaña MD 12/20/2019 17:37 Harry Saldaña MD in [facility] 12/20/2019 17:37
--- NOTE | 2019-12-20 09:57 | XR_ITS ---
PROCEDURE: XR FOOT WT BEARING RT 3V CLINICAL INDICATION: follow up Follow-up surgery COMPARISON: CR XR FOOT WT BEARING RT 3V from 11/27/2018 CR XR FOOT WT BEARING RT 3V from 01/16/2019 CR XR FOOT WT BEARING LT 3V from 04/30/2019 CR XR ANKLE WT BEARING RT MIN 3V from 04/30/2019 CR XR FOOT WT BEARING RT 3V from 04/30/2019 FINDINGS: Status post hindfoot and midfoot fusion as previously described with screws in the calcaneal talar region, a large staple at the calcaneocuboid region with a screw also present at that area, and skull 2 screws within the navicular cuneiform region extending up into the talus. These are not significantly changed. There appears to been bony fusion at the talonavicular area and partial bony fusion at the navicular cuneiform region with fusion of the talocalcaneal joint and calcaneocuboid joint. Alignment. There remains pes planus. The ankle mortise is preserved. Minimal hypertrophic changes are present at the distal fibula and there lucency is present in the calcaneus and distal tibia and fibula from previous external fixator. IMPRESSION: Status post mid and hindfoot fusion as described above with good alignment and persistent pes planus. No obvious orthopedic complications Dictated by: Harry Saldaña MD 12/20/2019 17:34 Harry Saldaña MD in [place] 12/20/2019 17:34
== END ==
PROVIDERS: PCP Internal Medicine Addiction Medicine; Visit Provider Podiatrist
DX: M76.821 Posterior tibial tendinitis, right leg (principal); M76.822 Posterior tibial tendinitis, left leg
CPT/HCPCS: 73610; 73630

== ENCOUNTER → 2020-01-14 12:44 | Outpatient (CLI) | payer MEDICAID, SELFPAY ==
--- NOTE | 2020-01-14 12:45 | MR_ITS ---
PROCEDURE: MR ANKLE RT WO/W CON CLINICAL INDICATION: surgical planning prior hx foor surgery 2018. medial sided ankle pain. no injury. 17ml proahnce given. lot:[id number] exp: feb 2022 prior x-ray 12-20-19 COMPARISON: CR XR FOOT WT BEARING RT 3V from 12/20/2019 TECHNIQUE: Routine multiplanar multi echo sequences are performed without and with gadolinium enhancement. FINDINGS: There is extensive artifact from the triple arthrodesis surgery. There is mild degree subcutaneous edema within the foot there is a small ankle joint effusion. The tibiofibular ligaments appear intact. ATFL also appears intact on the post enhanced images. Artifact obscures this area on the STIR images. At the level of the distal tibia at the base of the medial malleolar region there is heterogeneous increased T2 signal within the flexor digitorum longus and posterior tibialis tendons with some enlargement of the wrist tendons at that region. The flexor digitorum longus tendon appears intact distal to this area however, the tibialis posterior tendon is not identified. The flexor hallucis longus tendon appears intact. Cannot confirm the continuity of the peroneal brevis tendon inferior to the retro malleolar groove. Distally the peroneal brevis is identified and appears intact. There is a moderate degree of artifact in this region which could obscure visualization. Considerable artifact obscures the tarsal bones. The deltoid ligament fibers appear to be at least partially intact. A partial tear is a consideration. Posterior fibers are identified. Intact anterior fibers are not demonstrated however, there is a moderate degree of artifact which could obscure visualization. IMPRESSION: 1. Status post triple arthrodesis with moderate degree of artifact obscuring fine detail on the tarsal bones. There is a small ankle joint effusion. 2. Suspected tear of the posterior tibialis tendon. There may be a partial tear of the flexor digitorum longus at the distal tibial region. 3. Unable to completely identify the peroneal brevis tendon inferior to the retro malleolar groove which could be due to artifact or tear of this tendon. Dictated by: Harry Saldaña MD 01/17/2020 11:46 Harry Saldaña MD in [place] 01/17/2020 11:46
== END ==
PROVIDERS: PCP Internal Medicine Addiction Medicine; Visit Provider Podiatrist
DX: M25.371 Other instability, right ankle (principal)
CPT/HCPCS: 73723; A9576

== ENCOUNTER → 2020-02-12 11:16 | Outpatient (CLI) | payer MEDICAID, SELFPAY ==
--- NOTE | 2020-02-12 11:23 | XR_ITS ---
PROCEDURE: XR CHEST 2V CLINICAL HISTORY: HX OF CONGESTION, PREOPERATIVE COMPARISON: No exams were available for comparison FINDINGS: The cardiomediastinal silhouette and pulmonary vascularity are within normal limits. The lungs are clear without infiltrates, suspicious nodules, or pleural effusions. No acute bony abnormalities. IMPRESSION: No acute findings. Dictated by: Harry Saldaña MD 02/12/2020 18:18 Harry Saldaña MD in [place] 02/12/2020 18:18
--- NOTE | 2020-02-12 11:58 | ECG_ITS ---
APPROVED REPORT Exam: Resting ECG HR:65 bpm ECG Measurements Heart Rate 65 AXES DE 126 P 67 QRSd 82 QRS 65 QT 396 T 64 QTc 411 Conclusion Normal sinus rhythm Normal ECG Electronically signed by : Naeem Fernandez, 02/12/2020 19:55:03
== END ==
PROVIDERS: PCP Internal Medicine Addiction Medicine; Visit Provider Podiatrist
DX: Z01.818 Encounter for other preprocedural examination (principal); M76.821 Posterior tibial tendinitis, right leg; M79.671 Pain in right foot
CPT/HCPCS: 71046; 93005

== ENCOUNTER → 2020-02-18 15:43 | Outpatient (CLI) | payer MEDICAID, SELFPAY ==
[2020-02-18 17:03] LABS: 25-OH Vitamin D, Total 82.8 ng/mL (30-100)
[2020-02-18 17:23] LABS: Coronavirus 19 IgG Antibody Negative (Negative); Coronavirus 19 IgM Antibody Negative (Negative)
== END ==
PROVIDERS: Visit Provider Podiatrist
DX: Z01.812 Encounter for preprocedural laboratory examination (principal); Z11.52 Encounter for screening for COVID-19; M25.571 Pain in right ankle and joints of right foot; M25.371 Other instability, right ankle; M76.821 Posterior tibial tendinitis, right leg
CPT/HCPCS: 36415; 82306; 86328

== ENCOUNTER 2020-02-20 06:09 | Day surgery (SDC) | payer MEDICAID, SELFPAY ==
[2020-02-19 11:16] VITALS: BMI 31.4
[2020-02-20] VITALS (14 sets, daily range): BP systolic 114–159; BP diastolic 55–82; PULSE 85–170; RESP 15–20; TEMP 36.8–43; O2SAT 89–98
--- NOTE | 2020-02-20 07:26 | HMH.OPNOTE ---
Date of procedure: 02/20/20 Pre-op Diagnosis:: 1. Right ankle instability, deltoid partial tear 2. Right posterior tibialis tendon tear 3. Right peroneal brevis tendon tear 4. Right foot osteoarthritis 5. Right hallux valgus 6. Right foot hammertoes, extensor tendon contracture 7. Synovitis of right foot 8. Impingement of right ankle joint 9. Retained orthopedic hardware 10. Localized osteoporosis without current pathological fracture 11. Vitamin D deficiency 12. Obesity (BMI 30.0-34.9) Post-op Diagnosis:: Same Procedure performed:: 1. Right ankle arthrotomy with open synovectomy 2. Right modified Brostr?m 3. Right open deltoid ligament repair 4. Right posterior tibial tendon debridement, tenosynovectomy 5. Right peroneal tendon debridement and repair 6. Right [place] bunionectomy with tennille osteotomy 7. Right hammertoe repair (PIPJ AD 2-3, PIPJ AP 4-5) 8. Right extensor tendon lengthening 9. Application of amniotic graft 10. Application of posterior splint Surgeon:: Soraya Sousa DPM Crack Off Person(s):: Renetta Cao BILL ADJUSTER:: Aakash Rodriguez Anesthesia: GETA, regional (right popliteal, saph nerve block) Estimated blood loss (mL): 40 Clinical Note:: Patient is a 49-year-old female who underwent a revision on foot surgery, triple arthrodesis to the right side. Patient complains of worsening ankle instability as well has hammertoe contracture. MRI, x-rays reviewed and discussed with the patient. Conservative treatment discussed but not recommended. At this point she has failed conservative care including: Prior surgery, bracing, strapping, modification of shoe gear, modification of activity, icing, elevation, NSAIDs, physical therapy, inserts and continues to have muscle spasms and pain with ankle instability. We discussed surgery. All risks and benefits were discussed including but not limited to: damage to blood vessels and nerves, bleeding, infection, wound complications, delayed, mal or non-union of bone, post-traumatic arthritis, need for further surgery, need for removal of implant, prolonged swelling of the extremity, prolonged pain, recurrence or residual deformity, muscle spasms, CRPS/RSD, DVT, and anesthetic complications. No guarantees were given. All questions fully answered. The patient verbalized understanding and agreed to proceed with surgery. Consent was obtained. Necessary labs and pre-op testing ordered: CBC, CMP, vitamin D, EKG, CXR, covid. Pt was given a e-Rx for Percocet 7.5/325 #40, Zofran, Motrin, cyclobenzaprine. We discussed DVT prophylaxis. After her last surgery she was immobilized in an external fixation device and had Lovenox. We discussed the DVT/PE in detail. Patient does not want the Lovenox. We discussed use of aspirin postoperatively. Patient has crutches and walker at home. Labs and PCP-medical clearance per Dr. Fox . e-Rx Doxycyline 100mg BID and Rx given for wheelchair. Operative findings:: Right ankle instability with synovitis noted. There was a tear to the peroneus longus tendon inferior to the lateral malleolus. Peroneus brevis synovitis with a small tear noted longitudinally. Scar tissue noted to the medial and lateral incisions. There was scar tissue noted to the medial plantar arch incision. Tenosynovitis to the posterior tibial tendon. Contracture noted to the HIPJ as well as the PIPJ 2-5. Synovitis noted to the right HIPJ and first MPJ. There was cartilage erosion noted to the first metatarsal head and talar dome. This case took 45-60 mins longer than normal due to significant scarring, fibrotic tissue and synovitis. This patient has had three different surgeries, hence the thin skin and excessive scar tissue. Operative note:: On this date and time patient was deemed an appropriate surgical candidate. Pre-op regional popliteal and saphenous nerve block performed by anesthesia. With informed consent signed, the patient was taken to the operating theater. The patient was positioned supine. Gener
--- NOTE | 2020-02-20 08:51 | HMH.ANESCL ---
[facility] Anesthesia Checklist - Patient Identification Patient Identification: Arm Band - Structural Data Admitted From: Home Planned Operative Procedure/s: Right Foot [place] Bunionectomy- see consent Consent for Planned Operative Procedure(s) Verified: Yes Verified Documents: Surgical Consent - Additional verifications Anesthesia Reactions: No Hx Blood Transfusions: No Blood Transfusion Reaction: No - Airway Assessment C-Spine Mobility Assessed: Yes (mp2) TMJ Mobility Assessed: Yes Dentition: Good Dentition - Neurological Assessment Level of Consciousness: Awake, Alert - Anesthesia Plan Anesthesia Risk discussed: Yes Anesthesia Plan: Verified ASA Class: II Anesthesia Type: General w/block (Risks/benefits of popliteal/saphenous block discussed. Pt verbalizes understanding) [facility] History I have reviewed the patient's past medical history: Yes Medical History: Reports:: Anxiety, Depression, MRSA Denies:: Cancer, Diabetes Mellitus Type 1, Diabetes Mellitus Type 2, Internal Pacemaker, Seizures *Have you ever received a pneumonia vaccine?: No *Have you received a flu vaccine this season?: Yes Other Medical History: Reports: Hypothyroidism. Denies: Blood Transfusion Reaction Anesthesia experience/problems:: nac Other Surgeries: Yes: Dilation and Curettage, Hysterectomy-Total, Hysterectomy-Partial. No: Pacemaker Amputation: No Fractures: No - *Social History Last grade of school completed: High school graduate Smoking Status: Never smoker # Packs/Day (cigarettes): 0 Alcohol Intake: never Alcohol Intake Frequency:: other Substance Use Type: denies use *Occupational Status:: unemployed Housing: house Household Members: spouse, family *Travel in the last 8 weeks: None - Psychiatric History Pschychiatric History:: Reports:: Anxiety, Depression Family Hx:: Stroke, Cancer, Hypertension
--- NOTE | 2020-02-20 10:32 | SUR.OPER ---
1030-family updated at this time
--- NOTE | 2020-02-20 12:26 | XR_ITS ---
PROCEDURE: XR FOOT RT MIN 3V CLINICAL INDICATION: post op bunion Follow-up surgery COMPARISON: CR XR FOOT WT BEARING RT 3V from 04/30/2019 CR XR FOOT WT BEARING LT 3V from 12/20/2019 CR XR FOOT WT BEARING RT 3V from 12/20/2019 CR XR ANKLE RT MIN 3V from 02/20/2020 CR XR ANKLE RT 2V from 02/20/2020 CR XR FOOT RT 2V from 02/20/2020 FINDINGS: Posterior splint in place. Soft tissue gas is present in the ankle joint. [place] screws are present at the medial malleolar and lateral malleolar region. There has been prior arthrodesis of the talocalcaneal joint and talonavicular joint as well as the calcaneocuboid joint and navicular cuneiform joint. Most recently there has been pin placement into the 2nd 3rd 4th and 5th toes. The cast obscures the fine bony detail. There is good alignment on the AP view. In addition, there has been osteotomy with medial staple at the proximal aspect of the proximal phalanx of the great toe. Intraoperative images demonstrates medial lateral anchor screw placement. Pins are placed through the 2nd 3rd 4th and 5th phalanges from the distal phalanx to the proximal aspect of the proximal phalanx and medial staple is noted at the proximal phalanx of the great toe on the intraoperative exam. IMPRESSION: Status post old hindfoot fusion. More recent anchor screw placement at the distal fibula and medial a malleolar region as well as pin placement through the 2nd 3rd 4th and 5th toes and a staple at the medial aspect of the proximal phalanx of the great toe with good alignment Dictated by: Harry Saldaña MD 02/20/2020 16:43 Harry Saldaña MD in [place] 02/20/2020 16:43
--- NOTE | 2020-02-20 12:35 | HMH.ANESI ---
[facility] Anesthesia Record Part I Intake, IV Amount: 1,600 Estimated blood loss (mL): 10 Urine output (mL): 100 Blood Products used (#): none Blood Pressure: 139/71 SaO2: 96 Pulse Rate: 110 Respiratory Rate: 20 Temperature: 98.9 F Patient is:: Awake, Stable Stable to PACU at:: 12:33
[2020-02-20 12:42] LABS: Microscopic,Cath URINE MICROSCOPIC (MICROSCOPIC)
[2020-02-20 12:53] LABS: Appearance,Urine/Cath CLEAR (Clear); Bilirubin,Cath Negative (Negative); Blood, Urine/Cath Negative (Negative); Color,Urine/Cath YELLOW (Yellow); Glucose,Urine/Cath (UA) Negative (Negative); Ketones,Urine/Cath Negative (Negative); Leukocyte Esterase,Cath Negative (Negative); Nitrate,Cath Negative (Negative); Protein,Urine/Cath Negative (Negative); Specific Gravity, Urine/Cath 1.025 (1.005-1.030); Urobilinogen,Cath 0.2 EU/dl (0.2)
[2020-02-20 13:02] LABS: Mucus,Urine/Cath Trace /lpf; Squamous Epithelial Ur./Cath Occasional #/hpf (0-5)
--- NOTE | 2020-02-21 10:19 | P.PN_ITS ---
[facility] Anesthesia Record Part II Discharge Time: 13:31 Destination: Surgical Day Care (OP Surgery) PACU nurse assessment reviewed?: Yes Patient Condition:: Good Anesthesia Complications:: None Swallowing reflex intact?: Yes Cyanosis?: No Blood Pressure: 130/71 Pulse Rate: 98 Temperature: 98.9 F Mental Status: Alert & Oriented Pain level:: 3 Nausea and/or vomitting:: None Intake, IV Amount: 0
[2020-02-21 10:21] VITALS: BP 130/71; PULSE 98; TEMP 37.2
== END 2020-02-20 14:30 | disposition home or self-care (01) ==
LOC: OR 06:09
PROVIDERS: PCP Internal Medicine Addiction Medicine; Visit Provider Podiatrist
PROC: (CPT 27698; principal; 2020-02-20 07:30)
DX: M25.371 Other instability, right ankle (principal); M19.071 Primary osteoarthritis, right ankle and foot; M81.0 Age-related osteoporosis without current pathological fracture; M20.11 Hallux valgus (acquired), right foot; M21.611 Bunion of right foot; M24.574 Contracture, right foot; M20.41 Other hammer toe(s) (acquired), right foot; E55.9 Vitamin D deficiency, unspecified; Z79.899 Other long term (current) drug therapy
CPT/HCPCS: 27698; 28285 ×4; 28298; 29515; C5275; 73600; 73610; 73620; 73630; 76000; 81001; 87070; 87075; 87205; 96374; C1713; C1762; C1769; J2405; J2710; Q4211

== ENCOUNTER → 2020-03-11 18:02 | Outpatient (CLI) | payer MEDICAID, SELFPAY | PROVIDERS: Visit Provider Podiatrist | DX: T81.49XA Infection following a procedure, other surgical site, initial encounter (principal); M19.071 Primary osteoarthritis, right ankle and foot | CPT/HCPCS: 87070; 87205 ==

== ENCOUNTER → 2020-03-19 10:47 | Outpatient (CLI) | payer MEDICAID, SELFPAY ==
--- NOTE | 2020-03-19 10:50 | XR_ITS ---
PROCEDURE: XR FOOT WT BEARING RT 3V CLINICAL INDICATION: postop follow-up surgery COMPARISON: CR XR FOOT WT BEARING LT 3V from 12/20/2019 CR XR FOOT WT BEARING RT 3V from 12/20/2019 CR XR FOOT RT MIN 3V from 02/20/2020 CR XR FOOT RT 2V from 02/20/2020 FINDINGS: The posterior splint has been removed. The pins in the 2nd 3rd 4th and 5th toes and a staple in the proximal aspect of the proximal phalanx of the 1st toe remain in place. Status post talocalcaneal, calcaneocuboid, talar navicular and talar cuboid arthrodesis. No evidence of screw fracture. There is mildly prominent lucency around the screws from the talus into the cuboid. [place] screws are also present at the medial malleolar region and lateral malleolar area. Good alignment is noted with pes planus. IMPRESSION: Postsurgical changes with good alignment as described above. Dictated by: Harry Saldaña MD 03/19/2020 11:22 Harry Saldaña MD in [place] 03/19/2020 11:22
== END ==
PROVIDERS: PCP Internal Medicine Addiction Medicine; Visit Provider Podiatrist
DX: M79.671 Pain in right foot (principal); Z98.890 Other specified postprocedural states
CPT/HCPCS: 73630

== ENCOUNTER → 2020-05-12 13:52 | Outpatient (CLI) | payer MEDICAID, SELFPAY ==
--- NOTE | 2020-05-12 14:24 | XR_ITS ---
PROCEDURE: XR FOOT WT BEARING RT 3V CLINICAL INDICATION: postop Follow-up surgery COMPARISON: CR XR FOOT WT BEARING LT 3V from 12/20/2019 CR XR FOOT WT BEARING RT 3V from 12/20/2019 CR XR FOOT RT MIN 3V from 02/20/2020 CR XR FOOT RT 2V from 02/20/2020 CR XR FOOT WT BEARING RT 3V from 03/19/2020 FINDINGS: The pins have been removed at the 2nd 3rd 4th and 5th toes with good alignment. Apparent osteotomies at the distal aspect of the proximal phalanx of the 4th and 5th toes. Metallic staple at the proximal aspect of the proximal phalanx of the great toe. Status post talocalcaneal, talonavicular, and calcaneocuboid fusion as well as navicular cuneiform fusion. Good alignment. [place] screws are present at the medial malleolar and lateral malleolar region. Other findings:None. IMPRESSION: Postsurgical changes as described above Dictated by: Harry Saldaña MD 05/12/2020 14:54 Harry Saldaña MD in [place] 05/12/2020 14:54
[2020-05-12 14:44] LABS: Basophils % 0.2 % (0.1-2.0); Eosinophils % 0.2 % (0.1-12.0); Hemoglobin 12.6 g/dL (12.2-16.2); Lymphocytes # 1.5 K/mm3 (0.7-4.5); Lymphocytes % 22.2 % (10-50); Mean Corpuscular HGB Conc 32.3 g/dL (31.8-35.4); Mean Corpuscular Hemoglobin 31.2 pg (27.0-31.2); Mean Corpuscular Volume 96.6 fl (81-99); Mean Platelet Volume 7.6 fl (7.4-10.4); Monocytes # 0.4 K/mm3 (0.1-1.0); Monocytes % 6.1 % (1.7-9.3); Neutrophils # 4.8 K/mm3 (1.8-7.8); Neutrophils % 71.3 % (37.0-80.0); Platelet Count 272 K/mm3 (142-424); Red Blood Count 4.04 M/mm3 (4.20-5.40); Red Cell Distribution Width 13.5 % (11.5-17.5); White Blood Count 6.8 K/mm3 (4.8-10.8)
[2020-05-12 15:20] LABS: Alanine Aminotransferase 15 U/L (12-78); Albumin Level 4.4 g/dl (3.5-5.0); Albumin/Globulin Ratio 1.9 (1.1-1.8); Alkaline Phosphatase 97 U/L (38-126); Anion Gap 13.6 mEq/L (5-15); Aspartate Amino Transferase 25 U/L (14-36); Bilirubin,Total 0.2 mg/dl (0.2-1.3); Blood Urea Nitrogen 9 mg/dl (7-17); Calcium 9.4 mg/dl (8.4-10.2); Carbon Dioxide 29 mmol/L (22.0-30.0); Chloride 103 mmol/L (98-107); Estimated Glomerular Filt Rate 77 ml/min (>60); GFR (African American) 93 ML/MIN (>60); Globulin 2.3 g/dL (1.3-3.2); Glucose 99 mg/dl (74-100); Potassium 3.6 mmoL/L (3.5-5.1); Sodium 142 mmol/L (136-145); Total Protein,Serum 6.7 g/dl (6.3-8.2)
[2020-05-12 15:28] LABS: C-Reactive Protein 4.9 mg/L (0-4)
[2020-05-12 15:32] LABS: Erythrocyte Sedimentation Rate 27 mm/hr (0-20)
== END ==
PROVIDERS: Visit Provider Podiatrist
DX: Z98.890 Other specified postprocedural states (principal)
CPT/HCPCS: 36415; 73630; 80053; 85025; 85651; 86140

== ENCOUNTER 2020-09-04 13:49 | Emergency (ER) | payer MEDICAID, SELFPAY ==
[2020-09-04 13:51] VITALS: BP 116/56; RESP 22; TEMP 36.6; O2SAT 93; BMI 31.4
--- NOTE | 2020-09-04 13:52 | HMH.EDGENADL ---
ED Disposition Clinical Impression: Abrasion of foot Qualifiers: Encounter type: initial encounter Laterality: right Qualified Code(s): S90.811A - Abrasion, right foot, initial encounter Disposition: Home, Self-Care Condition on Discharge: Good Additional Instructions: Merry will call for follow-up appointment. Referrals: Elida Holguin PA [Primary Care Provider] - Time of Disposition: 15:28 - Critical Care Critical Care Time: No Attestation: On , the high probability of a clinically significant, sudden or life threatening deterioration of the following system(s) required my full and direct attention, intervention and personal management. The time I documented below is in addition to time spent performing reported procedures but includes the following listed in this critical care notation. Medical Decision Making - Medical Records Medical records reviewed: Yes: I reviewed the patient's medical records. - [place] Inquiry Pt receiving controlled substance: No Vital Signs: 09/04/20 13:51 Temperature 97.9 F Temperature Source Oral Respiratory Rate 22 Blood Pressure [Right Arm] 116/56 L Blood Pressure Mean [Right Arm] 76 Blood Pressure Source [Right Arm] Automatic Cuff 02 Sat by Pulse Oximetry 93 L Oxygen Delivery Method Room Air - Radiology Data #1 Image(s): Foot/Toes Image Reviewed: Yes I reviewed the patient's radiology results Preliminary Findings: Normal/NAD Hardware in place, no signs of broken hardware. Medical Decision Narrative: Patient evaluated for wound to her foot. Patient is in no acute distress on initial evaluation. X-rays were taken and a picture was taken and text to Dr. Sousa. X-rays without acute finding. Case discussed with Dr. Sousa, who agrees with my assessment of simply managing the foot. She states she will call the patient to establish follow-up in the next few days. Patient is appropriate stable for discharge home. General Adult HPI - General Stated complaint: rt foot surgery 02/27 surgery site opening Time Seen by Provider: 09/04/20 13:52 Mode of Arrival: Ambulatory Source of Information: Patient - History of Present Illness HPI narrative: 49yo F presents to the emergency department secondary to an open wound on her right foot. Patient had an extensive surgery several months ago at this facility and states my surgery is falling apart. Denies fever, pain. - Related Data Home Medications Medication Instructions Recorded Confirmed escitalopram oxalate 20 mg tablet 20 mg PO HS 30 Days #60 tab 05/16/18 05/12/20 lamotrigine 200 mg tablet 200 mg PO HS 30 Days #30 tab 05/16/18 05/12/20 oxybutynin chloride 5 mg tablet 5 mg PO HS 30 Days #90 tab 05/16/18 05/12/20 trazodone 100 mg tablet 100 mg PO HS 30 Days #30 tab 05/16/18 05/12/20 levothyroxine 100 mcg tablet 100 mcg PO DAILY #30 tab 07/12/18 05/12/20 venlafaxine 150 mg 150 mg PO HS #30 cap 07/12/18 05/12/20 capsule,extended release 24 hr Ergocalciferol (Vitamin D2) 50,000 unit PO QWEEK 08/01/18 05/12/20 [Drisdol] Levocetirizine Dihydrochloride 5 mg PO HS 08/01/18 05/12/20 [Xyzal] paroxetine HCl 20 mg tablet 20 mg PO DAILY 01/01/19 05/12/20 hydroxyzine pamoate 25 mg capsule 25 mg PO TID 05/12/20 05/12/20 Previous Rx's Medication Instructions Recorded diclofenac sodium 1 % topical gel 4 g TOPICAL QID #30 g 05/16/18 ibuprofen 800 mg tablet 800 mg PO BID #60 tab 08/03/18 temazepam 15 mg capsule 15 mg PO QHS PRN #20 cap 10/25/18 cyclobenzaprine 5 mg tablet 5 mg PO BID PRN #30 tab 02/12/20 ondansetron 4 mg disintegrating 4 mg PO Q6H #30 tab 02/12/20 tablet oxycodone-acetaminophen 7.5 mg-325 1 tab PO Q4-6H PRN 7 Days #40 tab 02/12/20 mg tablet ketorolac 10 mg tablet 10 mg PO Q6H PRN 5 Days #20 tab 02/20/20 clindamycin HCl 300 mg capsule 300 mg PO TID 14 Days #42 cap 05/02/20 levofloxacin 750 mg tablet 750 mg PO DAILY 14 Days #14 tab 05/02/20 Allergies Allergy/AdvReac Type Severity Reacti
--- NOTE | 2020-09-04 14:06 | XR_ITS ---
PROCEDURE: XR FOOT RT MIN 3V CLINICAL INDICATION: pain Worsening foot pain COMPARISON: CR XR FOOT RT MIN 3V from 02/20/2020 CR XR FOOT RT 2V from 02/20/2020 CR XR FOOT WT BEARING RT 3V from 03/19/2020 CR XR FOOT WT BEARING RT 3V from 05/12/2020 FINDINGS: Postsurgical changes are present as before involving the foot and ankle from prior hindfoot and midfoot fusion similar to the previous exam. No orthopedic hardware malfunction apparent. [place] once again noted at the proximal phalanx of the great toe. Hammertoe deformity of the 1st 2nd and 3rd toes are noted. There has been fusion of the talocalcaneal and talonavicular joint as well as the calcaneocuboid joint and navicular cuneiform joint IMPRESSION: Postsurgical changes. No change with no acute finding Dictated by: Harry Saldaña MD 09/04/2020 15:15 Harry Saldaña MD in [place] 09/04/2020 15:15
[2020-09-04 15:37] VITALS: BP 113/61; PULSE 77; RESP 16; TEMP 36.6; O2SAT 97
== END 2020-09-04 15:39 | disposition home or self-care (01) ==
PROVIDERS: Emergency Provider Family Medicine; PCP Physician Assistant
DX: S90.811A Abrasion, right foot, initial encounter (principal); F41.8 Other specified anxiety disorders
CPT/HCPCS: 73630; 99282

== ENCOUNTER → 2020-10-02 14:21 | Outpatient (CLI) | payer MEDICAID, SELFPAY ==
--- NOTE | 2020-10-02 14:21 | CT_ITS ---
PROCEDURE: CT FOOT RT WO CON CLINICAL HISTORY: FOREIGN BODY Evaluation Thank you 0 COMPARISON: CR XR FOOT RT MIN 3V from 09/04/2020 TECHNIQUE: Axial images obtained with sagittal and coronal reformats. All CT scans at the facility use one or more dose reduction, viz: automated exposure control, ma/kV adjustment per patient size (including targeted exams where dose is matched to indication, i.e. head), or iterative reconstruction technique. FINDINGS: There are extensive postsurgical changes. There has been prior talocalcaneal, talonavicular, calcaneocuboid, and navicular cuneiform fusion. There has also been placement of a stable along the proximal aspect of the proximal phalanx of the great toe medially bony hardware appears intact at these fusion sites. No evidence hardware loosening. Hammertoe deformity is present of digits 1 through 5. 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 No bony destructive process apparent. No acute fracture or dislocation. There is mild generalized soft tissue swelling about the foot. No obvious abscess. Along the dorsal aspect of the 1st metatarsophalangeal junction there is a small hyperdensity measuring approximately 2 mm which could be due to an area of dystrophic calcification/tendinous calcification or a small foreign body. No metallic foreign bodies are evident. There is an additional periarticular density along the lateral aspect of the 1st metatarsophalangeal joint at 3 mm and may be due to ligamentous calcification. IMPRESSION: 1. Status post hindfoot and midfoot fusion as described above. No orthopedic hardware malfunction apparent 2. Hammertoe deformity 1st through 5th toes. 3. Generalized soft tissue swelling. No obvious abscess 4. 2 mm opacity at the dorsal aspect of the 1st metatarsophalangeal joint which could very well represent ligamentous/soft tissue calcification versus a small foreign body. Dictated by: Harry Saldaña MD 10/03/2020 07:40 Harry Saldaña MD in [place] 10/03/2020 07:40
== END ==
PROVIDERS: PCP Physician Assistant; Visit Provider Nurse Practitioner
DX: M79.5 Residual foreign body in soft tissue (principal); S90.811A Abrasion, right foot, initial encounter
CPT/HCPCS: 73700

== ENCOUNTER → 2022-05-03 10:07 | Outpatient (CLI) | payer MEDICAID, SELFPAY ==
--- NOTE | 2022-05-03 10:14 | XR_ITS ---
FINAL REPORT CLINICAL HISTORY: b/l foot and ankle pain FINDINGS: AP, oblique, and lateral views of the left ankle were obtained. There is no prior exam for comparison. There is no fracture or dislocation. The ankle mortise is intact. Soft tissues are normal. IMPRESSION: No acute osseous abnormality of the left ankle. Reviewed, Interpreted and Dictated by Nicol Barraza MD Transcribed by Brannon Ya Authenticated and [facility]
--- NOTE | 2022-05-03 10:14 | XR_ITS ---
FINAL REPORT CLINICAL HISTORY: b/l foot and ankle pain FINDINGS: AP, oblique, and lateral views of the right ankle were obtained. There is no prior exam for comparison. There are extensive postoperative changes from hindfoot fusion. The hardware appears intact. There is no fracture or dislocation. There is an abnormal appearance to the ankle mortise. There is medial tilt of the talar dome with respect to the distal tibia. Soft tissues are normal. IMPRESSION: Medial tilt of the talar dome with respect to the distal tibia. Extensive postoperative change. Reviewed, Interpreted and Dictated by Nicol Barraza MD Transcribed by Brannon Ya Authenticated and [facility]
--- NOTE | 2022-05-03 10:14 | XR_ITS ---
FINAL REPORT CLINICAL HISTORY: b/l foot and ankle pain FINDINGS: AP, oblique and lateral views of the left foot were obtained. There is no prior exam for comparison. There is an accessory navicular. There is no acute fracture or dislocation. The joint spaces are preserved. Soft tissues are normal. IMPRESSION: No acute osseous abnormality of the left foot. Reviewed, Interpreted and Dictated by Nicol Barraza MD Transcribed by Brannon Ya Authenticated and [facility]
--- NOTE | 2022-05-03 10:14 | XR_ITS ---
FINAL REPORT CLINICAL HISTORY: b/l foot and ankle pain COMPARISON: August 2020 FINDINGS: AP, oblique and lateral views of the right foot were obtained. There is stable postoperative change from hindfoot fusion. There is no evidence of hardware complication. There is no acute fracture or dislocation. Degenerative disease at the 1st MTP joint is slightly progressed. Soft tissues are normal. IMPRESSION: Postoperative and degenerative changes. Reviewed, Interpreted and Dictated by Nicol Barraza MD Transcribed by Brannon Ya Authenticated and . [facility]
== END ==
PROVIDERS: PCP Physician Assistant; Visit Provider Podiatrist
DX: M25.571 Pain in right ankle and joints of right foot (principal); M25.572 Pain in left ankle and joints of left foot; M79.672 Pain in left foot; M79.671 Pain in right foot
CPT/HCPCS: 73610; 73630

== ENCOUNTER → 2022-05-03 16:31 | Outpatient (CLI) | payer MEDICAID, SELFPAY | PROVIDERS: Visit Provider Podiatrist | DX: M76.821 Posterior tibial tendinitis, right leg (principal); M65.9 Synovitis and tenosynovitis, unspecified; B96.89 Other specified bacterial agents as the cause of diseases classified elsewhere; B95.7 Other staphylococcus as the cause of diseases classified elsewhere | CPT/HCPCS: 87070; 87077; 87186; 87205; 87220 ==

== ENCOUNTER → 2022-07-13 14:53 | Outpatient (CLI) | payer MEDICAID, SELFPAY ==
[2022-07-13 15:41] LABS: Basophils % 0.3 % (0.1-2.0); Eosinophils # 0.1 K/mm3 (0.0-0.4); Eosinophils % 0.7 % (0.1-12.0); Hematocrit 40.3 % (37.0-47.0); Hemoglobin 12.5 g/dL (12.2-16.2); Lymphocytes # 1.6 K/mm3 (0.7-4.5); Lymphocytes % 22.5 % (10-50); Mean Corpuscular Hemoglobin 29.8 pg (27.0-31.2); Mean Platelet Volume 6.9 fl (7.4-10.4); Monocytes # 0.4 K/mm3 (0.1-1.0); Monocytes % 5.4 % (1.7-9.3); Neutrophils % 71.2 % (37.0-80.0); Platelet Count 300 K/mm3 (142-424); Red Cell Distribution Width 14.1 % (11.5-17.5); White Blood Count 7.1 K/mm3 (4.8-10.8)
[2022-07-13 16:44] LABS: Alanine Aminotransferase 17 U/L (12-78); Albumin Level 4.3 g/dl (3.5-5.0); Alkaline Phosphatase 112 U/L (38-126); Anion Gap 15.7 mEq/L (5-15); Aspartate Amino Transferase 25 U/L (14-36); Bilirubin,Total 0.4 mg/dl (0.2-1.3); Blood Urea Nitrogen 9 mg/dl (7-17); Calcium 9.5 mg/dl (8.4-10.2); Carbon Dioxide 27 mmol/L (22.0-30.0); Chloride 103 mmol/L (98-107); Estimated Glomerular Filt Rate 67 ml/min (>60); GFR (African American) 81 ML/MIN (>60); Globulin 2.2 g/dL (1.3-3.2); Glucose 87 mg/dl (74-100); Potassium 4.7 mmoL/L (3.5-5.1); Sodium 141 mmol/L (136-145); Total Protein,Serum 6.5 g/dl (6.3-8.2); Uric Acid 4.3 mg/dl (2.5-6.2)
[2022-07-13 17:04] LABS: C-Reactive Protein 4.6 mg/L (0-4)
[2022-07-13 19:00] LABS: Erythrocyte Sedimentation Rate 16 mm/hr (0-20)
[2022-07-28 05:19] LABS: 1,25 Dihydroxy Vitamin D 33 pg/mL (.); 1,25-Dihydroxy, Vitamin D-2 <10 pg/mL (.); 1,25-Dihydroxy, Vitamin D-3 27 pg/mL (.)
== END ==
PROVIDERS: PCP Physician Assistant; Visit Provider Podiatrist
DX: S91.001A Unspecified open wound, right ankle, initial encounter (principal); R60.9 Edema, unspecified; E66.9 Obesity, unspecified; Z68.35 Body mass index [BMI] 35.0-35.9, adult
CPT/HCPCS: 36415; 80053; 82652; 83036; 84550; 85025; 85651; 86140

== ENCOUNTER 2024-04-03 09:03 | Outpatient (CLI) | payer MEDICAID, SELFPAY ==
--- NOTE | 2024-04-03 09:06 | XR_ITS ---
FINAL REPORT CLINICAL HISTORY: foot pain COMPARISON: 05/03/2022 FINDINGS: LEFT FOOT Three views of the left foot demonstrate no acute fracture or dislocation. Again noted is an accessory ossicle of the navicular bone. Mild calcaneal spurring is noted. The visualized joint spaces are normally aligned. The soft tissues are unremarkable. IMPRESSION: No significant change from prior. Reviewed, Interpreted and Dictated by Darrel Kuo MD Transcribed by Brandy Calle Authenticated and [facility]
--- NOTE | 2024-04-03 09:06 | XR_ITS ---
FINAL REPORT CLINICAL HISTORY: foot pain COMPARISON: 05/03/2022 FINDINGS: RIGHT FOOT 3 views of the right foot were obtained. There are extensive postoperative changes in the hindfoot with surgical fusion noted. There is bony fusion of the subtalar joint, talonavicular, and calcaneocuboid joints. Surgical changes are seen of the 1st proximal phalanx. There is no acute fracture or dislocation. Visualized joint spaces are normally aligned. There is generalized osteopenia. Soft tissues are unremarkable. IMPRESSION: Stable postoperative changes with fusion of the hindfoot. Reviewed, Interpreted and Dictated by Darrel Kuo MD Transcribed by Brandy Calle Authenticated and [facility]
== END 2024-04-03 23:59 | disposition home or self-care (01) ==
LOC: RAD 09:04
PROVIDERS: PCP Physician Assistant; Visit Provider Podiatrist
DX: M79.671 Pain in right foot (principal); M79.672 Pain in left foot
CPT/HCPCS: 73630

== ENCOUNTER 2024-04-03 11:03 | Outpatient (RCR) | payer MEDICAID, SELFPAY | END 2024-04-03 23:59 | disposition home or self-care (01) | LOC: PT 11:03 | PROVIDERS: Visit Provider Podiatrist | DX: Z98.890 Other specified postprocedural states (principal) | CPT/HCPCS: 97760 ==

== ENCOUNTER 2024-06-04 10:31 | Outpatient (CLI) | payer MEDICAID, SELFPAY ==
--- NOTE | 2024-06-04 10:30 | CT_ITS ---
FINAL REPORT TECHNIQUE: Thin section axial CT images with coronal and sagittal reformats were performed of the left foot. This study was performed with techniques to keep radiation doses as low as reasonably achievable (ALARA). Individualized dose reduction techniques using automated exposure control or adjustment of mA and/or kV according to the patient''s size were employed. CLINICAL HISTORY: .left foot pain COMPARISON: None FINDINGS: There are no fractures. There is a small plantar calcaneal spur. The ankle mortise is intact. There is a tiny osteochondral lesion of the medial talar dome measuring 2 mm. There are no masses or fluid collections. There are no soft tissue abnormalities. IMPRESSION: Tiny osteochondral lesion medial talar dome. Small plantar spur. Reviewed, Interpreted and Dictated by Zan Heart MD Transcribed by Brandy Calle Authenticated and [facility]
--- OUTSIDE RECORDS SUMMARY | 2024-06-04 10:34 | XMS_ITS ---
Author Organization [facility] Address [address] [place] [address] Phone Care Team Providers Care Entry Level Assistant Manager Name Role Phone Tyler JOSE ARMANDOYadira Unavailable [phone] Gato DPM, Chandler S Unavailable [phone] Dominique DILL, [place] Primary Care Provider [phone] Reason for Referral Date Encounter Description Provider Reason for Referral 02/07/20 Physician Specified Demarcus Travis MD Refe rral To Physician - for low BP Problems Includes: Active, inactive, and resolved Problems All Visits Onset Date Resolved Date Provider Condition S tatus Midback Pain 02/07/2020 Demarcus Travis MD Active Last Documented On 0 9:25AM ; [facility] Lower Back Pain 02/07/2020 Demarcus Travis MD Act bharath Last Documented On 0 9:25AM ; [facility], [facility] Plan of Treatment Instructions to patient Lose weight Last Documented On 3 10:23AM ; [facility], [facility] Lose weight Last Documented On 0 9:40AM ; [facility], [facility] Assessments Includes: Assessments for all patient encounters No Assessments Recorded Instructions Includes: Instructions for all patient encounters Instructions to patient Lose weight Last Documented On 3 10:23AM ; [facility], [facility] Lose weight Last Documented On 0 9:40AM ; [facility], [facility] Medical Equipment - Implanted Devices Includes: Current and historical Devices No Medical Equipment Recorded Medications Includes: Current and historical Medications Current Medications (continue as prescribed) Clindamycin Phosphate 1% External Gel 08/18/2022 Pro vider: Kamron Mann Diagnosis: Last Documented On 3 10:22AM By Randy Granados ; [facility], [facility] Mupirocin 2% External Ointment 08/18/2022 Provider: Kamron Mann Diagnosis: Last Documented On 3 10:22AM By Randy Granados ; [facility] buPROPion HCl ER (XL) 150 MG Oral Tablet Extended Release 24 Hour 08/11/2022 Provider: Yadira Head Diagnosis: Last Documented On 3 10:22AM By Randy Granados ; [facility] Estradiol 2 MG Oral Tablet 08/11/2022 Provider: Diagnosis: Last Documented On 3 10:22AM By Randy Granados ; [facility] Fexofenadine HCl 180 MG Oral Tablet 08/11/2022 Provi nina: Yadira Tyler PA-C Diagnosis: Last Documented On 3 10:22AM By Randy Granados ; [facility] lamoTRIgine 200 MG Oral Tablet 08/11/2022 Provider: Diagnosis: Last Documented On 3 10:22AM By Randy Granados ; [facility] Levothyroxine Sodium 75 MCG Oral Tablet 08/11/2022 P rovider: Yadira Tyler PA-C Diagnosis: Last Documented On 3 10:22AM By Randy Granados ; [facility] Meloxicam 7.5 MG Oral Tablet 08/11/2022 Provider: Diagnosis: Last Documented On 3 10:22AM By Randy Granados ; [facility] Oxybutynin Chloride 5 MG Oral Tablet 08/11/2022 Prov ider: Yadira Tyler PA-C Diagnosis: Last Documented On 3 10:22AM By Randy Granados ; [facility] PARoxetine HCl 40 MG Oral Tablet 08/11/2022 Provider : Diagnosis: Last Documented On 3 10:22AM By Randy Granados ; [facility] Progesterone 200 MG Oral Capsule 08/11/2022 Provider : Diagnosis: Last Documented On 3 10:22AM By Randy Granados ; [facility] traZODone HCl 100 MG Oral Tablet 08/11/2022 Provider : Diagnosis: Last Documented On 3 10:22AM By Randy Granados ; [facility] Vitamin D (Ergocalciferol) 1 .25 MG (27353 UT) Oral Capsule 08/11/2022 Provider: Yadira Tyler PA-C Diagnosis: Last Documented On 3 10:23AM By Randy Granados ; [facility], [facility] Past Medications on file Meloxicam 15 MG Oral Tablet 01/22/2020 - 08/20/2022 Pr ovider: Diagnosis: Last Documented On 3 10:23AM By Randy Granados ; [facility] PARoxetine HCl 40 MG Oral Tablet 01/21/2020 - 08/21/19 Provider: Diagnosis: Last Documented On 3 10:23AM By Randy Granados ; [facility] Synthroid 100 MCG Oral Tablet 01/21/2020 - 08/20/2022 Provider: Olivia Weber Aprn Diagnosis: Last Documented On 3 10:23AM By Randy Granados ; [facility], [facility] Oxybutynin Chloride 5 MG Oral Tablet 01/21/2020 - 08/07 Provider: Diagnosis: Last Documented On 3 10:23AM By Randy Granados ; [facility] traZODone HCl 100 MG Oral Tablet 01/21/2020 - 08/21/19 Provider: Diagnosis: Last Documented On 3 10:23AM By Randy Granados ; [facility], [facility] Venlafaxine HCl ER 150 MG Or al Capsule Extended Release 24 Hour 01/21/2020 - 08/20/2022 Provider: Diagnosis: Last Documented On 3 10:23AM By Randy Granados ; [facility] lamoTRIgine 200 MG Oral Tablet 01/21/2020 - 08/20/2022 Provider: Olivia Weber Aprn Diagnosis: Last Documented On 3 10:23AM By Randy Granados ; [facility] Levocetirizine Dihydrochloride 5 MG Oral Tablet 12/18/2019 - 08/20/2022 Provider: Diagnosis: Last Documented On 3 10:23AM By Randy Granados ; [facility], [facility] Medications Administered Includes: Administered Medications in patient's chart No Administered Medications Recorded Results Includes: Results from 06/05/2023 through 06/04/2024 No Results Recorded For Specified Dates History of Present Illness History of Present Illness not supported for this document type No History of Present Illness Recorded Social History Description Last Updated No recent change in diet 08/20/2022 Last Documented On 4 11:03AM ; [facility], [facility] Not a current smoker. 08/20/2022 Last Documented On 4 11:03AM ; [facility], [facility] Tobacco non-user 08/20/2022 Last Documented On 4 11:03AM ; [facility], [facility] Caffeine use 02/07/2020 Last Documented On 1 9:10AM ; [facility], [facility] Exercising regularly 02/07/2020 Last Documented On 1 9:10AM ; [facility], [facility] No recent change in diet 02/07/2020 Last Documented On 1 9:10AM ; [facility], [facility] Not a current smoker. 02/07/2020 Last Documented On 1 9:10AM ; [facility], [facility] Not using alcohol 02/07/2020 Last Documented On 1 9:10AM ; [facility] Not using drugs 02/07/2020 Last Documented On 1 9:10AM ; [facility] Non-smoker 02/07/2020 Last Documented On 1 9:10AM ; [facility], [facility] Smoking Status Unknown Procedures and Surgical History Surgical History Last Updated History of hysterectomy 08/20/2022 Last Documented On 4 11:03AM ; [facility], [facility] Medical History Includes: Medical History in patient's chart Description Last Updated History of depression 02/07/2020 Last Documented On 1 9:10AM ; [facility], [facility] History of osteoporosis 02/07/2020 Last Documented On 1 9:10AM ; [facility] Hysterectomy 02/07/2020 Last Documented On 1 9:10AM ; [facility] A recent immunization for flu 11/08/2019 02/07/2020 Last Documented On 1 9:10AM ; [facility] No recent immunization for pneumococcal pneumonia 02/07/2020 Last Documented On 1 9:10AM ; [facility], [facility] Family History Includes: Family History in patient's chart Description Last Updated Family history of osteoporosis 3 Last Documented On 4 11:03AM ; [facility] Stroke / Seizures 08/20/2022 Last Documented On 4 11:03AM ; [facility] Family history of cancer 02/07/2020 Last Documented On 1 9:10AM ; [facility] Family history of hypertension 0 Last Documented On 1 9:10AM ; [facility], [facility] Review of Systems Review of Systems not supported for this document type No Review of Systems Recorded Mental Status Description Anxiety Functional Status No Functional Status Recorded Physical Exam Physical Exam not supported for this document type No Physical Exam Recorded Immunizations Includes: Immunizations in patient's chart Vaccine Dose # Date Site Reaction(s) Status Source Influenza 1 11/08/2019 Complete (Reported) Patient Last Documented On 0 9:40AM ; [facility] Allergies Includes: Active, inactive, and resolved Allergies No Known Allergies Insurance Includes: Active Insurance Policies Plan Name Member ID Group # Subscriber Relationship Effect bharath Dates 1 - [facility] [id number] Bernarda Rubin Self 11/08/2015 - Unknown Clinical Notes Includes: Signed Clinical Notes starting from 01/21/2022 No Clinical Notes Recorded
--- OUTSIDE RECORDS SUMMARY | 2024-06-04 10:34 | XMS_ITS | Clinical Summary ---
[facility] Address [address] [place] [address] Phone Care Team Providers Care Real Estate Subagent Name Role Phone Jayson SUÁREZYadira Unavailable [phone] Gato DPM, Chandler S Unavailable [phone] Dominique DILL, [facility] Primary Care Provider [phone] Reason for Referral Date Encounter Description Provider Reason for Referral 02/07/20 Physician Specified Demarcus Travis MD Refe rral To Physician - for low BP Reason for Visit and Chief Complaint The Chief Complaint is: thoracic/lumbar pain Problems Includes: Problems addressed during this encounter and other active Problems Current Visit Onset Date Resolved Date Provider Luna bentley Status Midback Pain 02/07/2020 Demarcus Travis MD Active Last Documented On 0 9:25AM ; [facility] Lower Back Pain 02/07/2020 Demarcus Travis MD Act bharath Last Documented On 0 9:25AM ; [facility] Plan of Treatment She is not having any complaints or symptoms. Lumbar scoliosis is mild. My recommendation to her is just continued to be healthy, eat well, exercise and maintain flexibility. She is happy to hear this. We can see her back in a year and repeat x-rays for stability The patient was seen by myself, Gt Jones PA-C Electronically signed CINDY Fabian - Last Documented On 02/12/2020 9:10AM ; [facility] Instructions to patient Lose weight Last Documented On 0 9:40AM ; [facility] Assessments Includes: Assessments from this encounter Findings Lumbar scoliosis - Last Documented On 02/12/2020 9:10AM ; [facility] Instructions Includes: Instructions from this encounter Instructions to patient Lose weight Last Documented On 0 9:40AM ; [facility] Medical Equipment - Implanted Devices Includes: Current Devices No Medical Equipment Recorded Medications Includes: Medications discussed during this encounter and other current Medications Current Medications (continue as prescribed) Clindamycin Phosphate 1% External Gel 08/18/2022 Pro vider: Kamron Mann Diagnosis: Last Documented On 3 10:22AM By Randy Granados ; [facility] Mupirocin 2% External Ointment 08/18/2022 Provider: Kamron Mann Diagnosis: Last Documented On 3 10:22AM By Randy Granados ; [facility] buPROPion HCl ER (XL) 150 MG Oral Tablet Extended Release 24 Hour 08/11/2022 Provider: Yadira Head Diagnosis: Last Documented On 3 10:22AM By Randy Granados ; [facility] Estradiol 2 MG Oral Tablet 08/11/2022 Provider: Diagnosis: Last Documented On 3 10:22AM By Randy Granados ; [facility] Fexofenadine HCl 180 MG Oral Tablet 08/11/2022 Provi nina: Yadira Tyler PA-C Diagnosis: Last Documented On 3 10:22AM By Randy Granados ; [facility] lamoTRIgine 200 MG Oral Tablet 08/11/2022 Provider: Diagnosis: Last Documented On 3 10:22AM By Randy Granados ; [facility] Levothyroxine Sodium 75 MCG Oral Tablet 08/11/2022 P rovider: Yadira Tyler PA-C Diagnosis: Last Documented On 3 10:22AM By Randy Granados ; [facility] Meloxicam 7.5 MG Oral Tablet 08/11/2022 Provider: Diagnosis: Last Documented On 3 10:22AM By Randy Granados ; [facility] Oxybutynin Chloride 5 MG Oral Tablet 08/11/2022 Prov ider: Yadira Tyler PA-C Diagnosis: Last Documented On 3 10:22AM By Randy Granados ; [facility] PARoxetine HCl 40 MG Oral Tablet 08/11/2022 Provider : Diagnosis: Last Documented On 3 10:22AM By Randy Granados ; [facility] Progesterone 200 MG Oral Capsule 08/11/2022 Provider : Diagnosis: Last Documented On 3 10:22AM By Randy Granados ; [facility] traZODone HCl 100 MG Oral Tablet 08/11/2022 Provider : Diagnosis: Last Documented On 3 10:22AM By Randy Granados ; [facility] Vitamin D (Ergocalciferol) 1 .25 MG (96328 UT) Oral Capsule 08/11/2022 Provider: Yadira Tyler PA-C Diagnosis: Last Documented On 3 10:23AM By Randy Granados ; [facility] Medications Administered Includes: Administered Medications from this encounter No Administered Medications Recorded Vital Signs Includes: Vital Signs from this encounter Vital Name 02/07/2020 09:40A Blood Pressure Sitting (mmHg) 92/50 Pulse Rate-Sitting (bpm) 70 Height (in) 64 Weight (lb) 189 Body Mass Index (kg/m2) 32.4 Body Surface Area (m2) 1.9 Note: alb Last Documented: On 02/07/2020 9:39AM ; [facility] Results Includes: Results discussed during this encounter No Results Recorded For Specified Dates History of Present Illness Includes: History of Present Illness from this encounter HPI Bernarda Rubin is a 49 year old female. - Allergy list reviewed - Problem list reviewed - Medication list reviewed with patient - Medication reconciliation performed - Pain is occasional (25% of the time) - Patient pain level from 1-10: 3 - History of Home Exercise - No previous treatment. 49-year-old who says she was referred here for evaluation of scoliosis. She said her job foreman recommend that she see a care management specialist because she has scoliosis. She tells me she does not have any back pain. She has no leg pain numbness tingling or weakness. Social History Description Last Updated Caffeine use 02/07/2020 Last Documented On 1 9:10AM ; [facility] Exercising regularly 02/07/2020 Last Documented On 1 9:10AM ; [facility] No recent change in diet 02/07/2020 Last Documented On 1 9:10AM ; [facility] Not a current smoker. 02/07/2020 Last Documented On 1 9:10AM ; [facility] Not using alcohol 02/07/2020 Last Documented On 1 9:10AM ; [facility] Not using drugs 02/07/2020 Last Documented On 1 9:10AM ; [facility] Non-smoker 02/07/2020 Last Documented On 1 9:10AM ; [facility] Smoking Status Unknown Procedures and Surgical History Includes: Procedures from this encounter Procedures Code Diagnosis Performing Provider Service L ocation Service Date use of tobacco assessment performed 1000F Last Documented On 0 9:40AM ; [facility] referral to physician for low BP Last Documented On 0 9:40AM ; [facility] an X-ray was performed 14284 Last Documented On 0 11:38AM ; [facility] a CT scan was performed 28721 Last Documented On 0 11:38AM ; [facility] an MRI was performed 14829 Last Documented On 0 11:38AM ; [facility] History of EKG Last Documented On 0 11:38AM ; [facility] History of Blood Tests Last Documented On 0 11:38AM ; [facility] Medical History Includes: Medical History addressed during this encounter Description Last Updated History of depression 02/07/2020 Last Documented On 1 9:10AM ; [facility] History of osteoporosis 02/07/2020 Last Documented On 1 9:10AM ; [facility] Hysterectomy 02/07/2020 Last Documented On 1 9:10AM ; [facility] A recent immunization for flu 11/08/2019 02/07/2020 Last Documented On 1 9:10AM ; [facility] No recent immunization for pneumococcal pneumonia 02/07/2020 Last Documented On 1 9:10AM ; [facility] Family History Includes: Family History addressed during this encounter Description Last Updated Family history of cancer 02/07/2020 Last Documented On 1 9:10AM ; [facility] Family history of hypertension 0 Last Documented On 1 9:10AM ; [facility] Review of Systems Includes: Review of Systems from this encounter Systemic: Not feeling tired (fatigue), no recent weight loss, and no recent weight gain. Head: Headache and sinus pain. Eyes: Vision problems. No Cataracts, no Glasses/Contacts, and no Glaucoma. Otolaryngeal: No hearing loss and no tinnitus. Cardiovascular: No chest pain or discomfort, no palpitations, no Hypertension, and no High Cholesterol. Pulmonary: No daytime asthma symptoms and no chronic cough. No wheezing. Gastrointestinal: No heartburn and no abdominal pain. No Indigestion, no Acid Reflux, no Peptic Ulcer, no GI Stomach Bleed, and no Ulcers. Endocrine: No hot flashes, no muscle weakness, no Diabetes, no Hypothyroid, and no Hyperthyroid. Hematologic: No easy bleeding, no tendency for easy bruising, and no Anemia. Musculoskeletal: No Arthritis. Lower back pain. No soft tissue swelling. Pain localized to one or more joints. Neurological: No dizziness, no convulsions, and no numbness. Psychological: Anxiety. No emotional lability. Depression. No insomnia. Not crying for no reason. Skin: No dry skin. Ulcers. No Scars and no rash. Allergic and Immunologic: Complaint of seasonal allergic reaction. Mental Status Includes: Mental Status from this encounter Description Anxiety Functional Status Includes: Functional Status from this encounter No Functional Status Recorded Physical Exam Includes: Physical Exam from this encounter Immunizations Includes: Immunizations addressed during this encounter Vaccine Dose # Date Site Reaction(s) Status Source Influenza 1 11/08/2019 Complete (Reported) Patient Last Documented On 0 9:40AM ; [facility] Allergies Includes: Active Allergies No Known Allergies Encounters Encounter Provider Location Date Check-In Time Check-Out Time Diagnosis Physician Specified Demarcus Travis MD [facility] 02/07/20 20 9:06AM 9:58AM Insurance Includes: Active Insurance Policies Plan Name Member ID Group # Subscriber Relationship Effect bharath Dates 1 - [facility] [id number] Bernarda Rubin Self 11/08/2015 - Unknown Clinical Notes Includes: Clinical Notes from this encounter No Clinical Notes Recorded
--- OUTSIDE RECORDS SUMMARY | 2024-06-04 10:34 | XMS_ITS ---
Care Plan - [facility] Created on: June 04, 2024 Bernarda Rubin : 1970 Sex: Female Author Organization [facility] Address [address] [place] [address] Phone Care Team Providers Care Cigar Tobacco Processing Supervisor Name Role Phone Yadira Tyler PA-C Unavailable [phone] Gato RUVALCABA, Chandler Ross Unavailable [phone] Dominique DILL, Manpreet Primary Care Provider [phone]
--- OUTSIDE RECORDS SUMMARY | 2024-06-04 10:34 | XMS_ITS | Clinical Summary ---
Author Organization [facility] , [facility] Address [address] [place] [address] Phone Care Team Providers Care Gunner'S Mate M Name Role Phone Jayson SUÁREZYadira Unavailable [phone] Gato RUIZM, Chandler S Unavailable [phone] Dominique DILL, [place] Primary Care Provider [phone] Reason for Visit and Chief Complaint The Chief Complaint is: thoracic/lumbar pain Problems Includes: Problems addressed during this encounter and other active Problems Current Visit Onset Date Resolved Date Provider Conditio n Status Lower Back Pain 02/07/2020 Demarcus Travis MD Act bharath Last Documented On 0 9:25AM ; [facility] Past Visits Onset Date Resolved Date Provider Condition Status Midback Pain 02/07/2020 Demarcus Travis MD Active Last Documented On 0 9:25AM ; [facility], [facility] Plan of Treatment We discussed treatment options. Recommend conservative treatment including weight loss. I think she would also benefit from a breast reduction she does have large breasts. This would certainly help take strain off of her back specially with the: Scoliotic deformity she has. Give her spine brochure of some core stabilization exercises no plan for spine surgery follow-up as needed - Last Documented On 05/10/2023 11:03AM ; [facility], [facility] Instructions to patient Lose weight Last Documented On 3 10:23AM ; [facility], [facility] Assessments Includes: Assessments from this encounter Findings Lumbar scoliosis - Last Documented On 05/10/2023 11:03AM ; [facility], [facility] Low back pain - Last Documented On 05/10/2023 11:03AM ; [facility] Instructions Includes: Instructions from this encounter Instructions to patient Lose weight Last Documented On 3 10:23AM ; [facility] Medical Equipment - Implanted Devices Includes: Current Devices No Medical Equipment Recorded Medications Includes: Medications discussed during this encounter and other current Medications Discontinued / Stopped on this date on 01/22/2020 Meloxicam 15 MG Oral Tablet Provider: Diagnosis: Last Documented On 3 10:23AM By Randy Granados ; [facility] PARoxetine HCl 40 MG Oral Tablet Provider : Diagnosis: Last Documented On 3 10:23AM By Randy Granados ; [facility] Synthroid 100 MCG Oral Tablet Provider: Olivia Weber Aprn Diagnosis: Last Documented On 3 10:23AM By Randy Granados ; [facility] Oxybutynin Chloride 5 MG Oral Tablet Prov ider: Diagnosis: Last Documented On 3 10:23AM By Randy Granados ; [facility] traZODone HCl 100 MG Oral Tablet Provider : Diagnosis: Last Documented On 3 10:23AM By Randy Granados ; [facility] Venlafaxine HCl ER 150 MG Or al Capsule Extended Release 24 Hour Provider: Diagnosis: Last Documented On 3 10:23AM By Randy Granados ; [facility] lamoTRIgine 200 MG Oral Tablet Provider: Olivia Weber Aprn Diagnosis: Last Documented On 3 10:23AM By Randy Granados ; [facility] Levocetirizine Dihydrochloride 5 MG Oral Tablet Provider: Diagnosis: Last Documented On 3 10:23AM By Randy Granados ; [facility] Current Medications (continue as prescribed) Clindamycin Phosphate 1% External Gel 08/18/2022 Pro vider: Kamron Mann Diagnosis: Last Documented On 3 10:22AM By Randy Granados ; [facility], [facility] Mupirocin 2% External Ointment 08/18/2022 Provider: Kamron Mann Diagnosis: Last Documented On 3 10:22AM By Randy Granados ; [facility] buPROPion HCl ER (XL) 150 MG Oral Tablet Extended Release 24 Hour 08/11/2022 Provider: Yadira Head Diagnosis: Last Documented On 3 10:22AM By Randy Granados ; [facility], [facility] Estradiol 2 MG Oral Tablet 08/11/2022 Provider: Diagnosis: Last Documented On 3 10:22AM By Randy Granados ; [facility], [facility] Fexofenadine HCl 180 MG Oral Tablet 08/11/2022 Provi nina: Yadira Tyler PA-C Diagnosis: Last Documented On 3 10:22AM By Randy Granados ; [facility], [facility] lamoTRIgine 200 MG Oral Tablet 08/11/2022 Provider: Diagnosis: Last Documented On 3 10:22AM By Randy Granados ; [facility], [facility] Levothyroxine Sodium 75 MCG Oral Tablet 08/11/2022 P rovider: Yadira Tyler PA-C Diagnosis: Last Documented On 3 10:22AM By Randy Granados ; [facility], [facility] Meloxicam 7.5 MG Oral Tablet 08/11/2022 Provider: Diagnosis: Last Documented On 3 10:22AM By Randy Granados ; [facility], [facility] Oxybutynin Chloride 5 MG Oral Tablet 08/11/2022 Prov ider: Yadira Tyler PA-C Diagnosis: Last Documented On 3 10:22AM By Randy Granados ; [facility], [facility] PARoxetine HCl 40 MG Oral Tablet 08/11/2022 Provider : Diagnosis: Last Documented On 3 10:22AM By Randy Granados ; [facility], [facility] Progesterone 200 MG Oral Capsule 08/11/2022 Provider : Diagnosis: Last Documented On 3 10:22AM By Randy Granados ; [facility] traZODone HCl 100 MG Oral Tablet 08/11/2022 Provider : Diagnosis: Last Documented On 3 10:22AM By Randy Granados ; [facility], [facility] Vitamin D (Ergocalciferol) 1 .25 MG (37831 UT) Oral Capsule 08/11/2022 Provider: Yadira Tyler PA-C Diagnosis: Last Documented On 3 10:23AM By Randy Granados ; [facility], [facility] Medications Administered Includes: Administered Medications from this encounter No Administered Medications Recorded Vital Signs Includes: Vital Signs from this encounter Vital Name 08/20/2022 10:33A Height (in) 64 Weight (lb) 209 Body Mass Index 35.9 Body Surface Area 2 Note: steve Last Documented: On 08/20/2022 10:33A M ; [facility], [facility] Results Includes: Results discussed during this encounter No Results Recorded For Specified Dates History of Present Illness Includes: History of Present Illness from this encounter HPI Bernarda Rubin is a 51 year old female. - Symptoms catching, giving away, grinding, popping sometimes walking makes pain better walking and sitting makers pain worse. - Allergy list reviewed - Problem list reviewed - Medication reconciliation performed - Medication list reviewed - Medication list reviewed with patient - Pain is constant (100% of the time) - Patient pain level from 1-10: 9 - History of Physical Therapy - History of Home Exercise - History of Chiropractic - No previous treatment. Patient follows up for back pain. She has lumbar scoliosis. She is overweight. We saw her back in 2019 offered follow-up just to evaluate her scoliosis says she just wants to come and see if anything significant change. Says she gets occasional pain across her low back but usually she does well and denies any numbness tingling or weakness in her legs. Social History Description Last Updated No recent change in diet 08/20/2022 Last Documented On 4 11:03AM ; [facility], [facility] Not a current smoker. 08/20/2022 Last Documented On 4 11:03AM ; [facility], [facility] Tobacco non-user 08/20/2022 Last Documented On 4 11:03AM ; [facility], [facility] Caffeine use 02/07/2020 Last Documented On 3 10:23AM ; [facility], [facility] Exercising regularly 02/07/2020 Last Documented On 3 10:23AM ; [facility] No recent change in diet 02/07/2020 Last Documented On 3 10:23AM ; [facility] Not a current smoker. 02/07/2020 Last Documented On 3 10:23AM ; [facility], [facility] Not using alcohol 02/07/2020 Last Documented On 3 10:23AM ; [facility], [facility] Not using drugs 02/07/2020 Last Documented On 3 10:23AM ; [facility], [facility] Non-smoker 02/07/2020 Last Documented On 3 10:23AM ; [facility], [facility] Smoking Status Unknown Procedures and Surgical History Includes: Procedures from this encounter Procedures Code Diagnosis Performing Provider Service L ocation Service Date use of tobacco assessment performed 1000F Last Documented On 3 10:23AM ; [facility], [facility] an X-ray was performed 08/20/2022 @ [facility] [id number] Last Documented On 3 10:51AM ; [facility], [facility] Surgical History Last Updated History of hysterectomy 08/20/2022 Last Documented On 4 11:03AM ; [facility], [facility] Medical History Includes: Medical History addressed during this encounter Description Last Updated History of depression 02/07/2020 Last Documented On 3 10:23AM ; [facility], [facility] History of osteoporosis 02/07/2020 Last Documented On 3 10:23AM ; [facility], [facility] Hysterectomy 02/07/2020 Last Documented On 3 10:23AM ; [facility], [facility] A recent immunization for flu 11/08/2019 02/07/2020 Last Documented On 3 10:23AM ; [facility], [facility] No recent immunization for pneumococcal pneumonia 02/07/2020 Last Documented On 3 10:23AM ; [facility], [facility] Family History Includes: Family History addressed during this encounter Description Last Updated Family history of osteoporosis 3 Last Documented On 4 11:03AM ; [facility], [facility] Stroke / Seizures 08/20/2022 Last Documented On 4 11:03AM ; [facility], [facility] Family history of cancer 02/07/2020 Last Documented On 3 10:23AM ; [facility], [facility] Family history of hypertension 0 Last Documented On 3 10:23AM ; [facility] Review of Systems Includes: Review of Systems from this encounter Systemic: Feeling tired. No recent weight loss. Recent weight gain. Head: Headache and sinus pain. Eyes: No vision problems, no Cataracts, no Glasses/Contacts, and no Glaucoma. Otolaryngeal: No hearing loss. Tinnitus. Cardiovascular: No chest pain or discomfort, no palpitations, no Hypertension, and no High Cholesterol. Pulmonary: No daytime asthma symptoms and no chronic cough. No wheezing. Gastrointestinal: No heartburn. Abdominal pain. No Indigestion, no Acid Reflux, no Peptic Ulcer, no GI Stomach Bleed, and no Ulcers. Endocrine: No hot flashes. Muscle weakness. No Diabetes, no Hypothyroid, and no Hyperthyroid. Hematologic: No easy bleeding. A tendency for easy bruising. No Anemia. Musculoskeletal: No Arthritis. Lower back pain. No soft tissue swelling. Pain localized to one or more joints. Neurological: Dizziness. No convulsions and no numbness. Psychological: Anxiety. No emotional lability. Depression and insomnia. Not crying for no reason. Skin: No dry skin. No Ulcers. Scars and rash: Allergic and Immunologic: No complaint of seasonal allergic reaction. Mental Status Includes: Mental Status from this encounter Description Anxiety Functional Status Includes: Functional Status from this encounter No Functional Status Recorded Physical Exam Includes: Physical Exam from this encounter Allergies Includes: Active Allergies No Known Allergies Encounters Encounter Provider Location Date Check-In Time Check-Out Time Diagnosis Follow Up Gt Jones PA-C [facility] 08/21/19 23 10:22AM 10:40AM Insurance Includes: Active Insurance Policies Plan Name Member ID Group # Subscriber Relationship Effect bharath Dates 1 - [facility] [id number] Bernarda Rubni Self 11/08/2015 - Unknown Clinical Notes Includes: Clinical Notes from this encounter * Progress note Date Encounter Last Documented by 08/20/2022 Follow Up Last documented on 05/10/2023; 11:03 AM, Gt Jones PA-C; [facility] Active Problems & Conditions - Lower Back Pain - Midback Pain Chief Complaint The Chief Complaint is: Thoracic/lumbar pain. Referred Here Referred by PCP. History of Present Illness Bernarda Rubin is a 51 year old female. - Symptoms catching, giving away, grinding, popping sometimes walking makes pain better walking and sitting makers pain worse. - Allergy list reviewed - Problem list reviewed - Medication reconciliation performed - Medication list reviewed - Medication list reviewed with patient - Pain is constant (100% of the time) - Patient pain level from 1-10: 9 - History of Physical Therapy - History of Home Exercise - History of Chiropractic - No previous treatment. Patient follows up for back pain. She has lumbar scoliosis. She is overweight. We saw her back in 2019 offered follow-up just to evaluate her scoliosis says she just wants to come and see if anything significant change. Says she gets occasional pain across her low back but usually she does well and denies any numbness tingling or weakness in her legs. Current Medication - buPROPion HCl ER (XL) 150 MG Oral Tablet Extended Release 24 Hour 30 days, 0 refills - Clindamycin Phosphate 1% External Gel 20 days, 0 refills - Estradiol 2 MG Oral Tablet 30 days, 0 refills - Fexofenadine HCl 180 MG Oral Tablet 30 days, 0 refills - lamoTRIgine 200 MG Oral Tablet 30 days, 0 refills - Levothyroxine Sodium 75 MCG Oral Tablet 30 days, 0 refills - Meloxicam 7.5 MG Oral Tablet 30 days, 0 refills - Mupirocin 2% External Ointment 7 days, 0 refills - Oxybutynin Chloride 5 MG Oral Tablet 30 days, 0 refills - PARoxetine HCl 40 MG Oral Tablet 30 days, 0 refills - Progesterone 200 MG Oral Capsule 30 days, 0 refills - traZODone HCl 100 MG Oral Tablet 30 days, 0 refills - Vitamin D (Ergocalciferol) 1.25 MG (56657 UT) Oral Capsule 28 days, 0 refills Past Medical/Surgical History Reported: Immunization History: Recent immunization for flu 11/08/2019. No recent immunization for pneumococcal pneumonia. Diagnoses: Osteoporosis. Depression Surgical: - Hysterectomy - Hysterectomy Social History Not a current smoker. Not a current smoker. Current diet: No recent change in diet. No recent change in diet. Caffeine use: Caffeine use. Tobacco use: Tobacco non-user and non-smoker. Alcohol: Not using alcohol. Drug Use: Not using drugs. Habits: Exercising regularly. Allergies - No Known Allergies Family History Cancer Stroke / Seizures Systemic hypertension Osteoporosis Review Of Systems Systemic: Feeling tired. No recent weight loss. Recent weight gain. Head: Headache and sinus pain. Eyes: No vision problems, no Cataracts, no Glasses/Contacts, and no Glaucoma. Otolaryngeal: No hearing loss. Tinnitus. Cardiovascular: No chest pain or discomfort, no palpitations, no Hypertension, and no High Cholesterol. Pulmonary: No daytime asthma symptoms and no chronic cough. No wheezing. Gastrointestinal: No heartburn. Abdominal pain. No Indigestion, no Acid Reflux, no Peptic Ulcer, no GI Stomach Bleed, and no Ulcers. Endocrine: No hot flashes. Muscle weakness. No Diabetes, no Hypothyroid, and no Hyperthyroid. Hematologic: No easy bleeding. A tendency for easy bruising. No Anemia. Musculoskeletal: No Arthritis. Lower back pain. No soft tissue swelling. Pain localized to one or more joints. Neurological: Dizziness. No convulsions and no numbness. Psychological: Anxiety. No emotional lability. Depression and insomnia. Not crying for no reason. Skin: No dry skin. No Ulcers. Scars and rash: Allergic and Immunologic: No complaint of seasonal allergic reaction. Physical Findings - Vitals taken 08/20/2022 10:33 am mbaker Height 64 in Weight 209 lbs Body Mass Index 35.9 kg/m2 Body Surface Area 2 m2 Standard Measurements: - Patient was overweight. She Is obese. no obvious scoliotic deformity. Her head is centered over her tailbone. Good sagittal balance. Patient is nontender to palpation lower lumbar spine. No bruising. Negative straight leg raise test bilaterally. 5 out of 5 strength in bilateral EHL, tibialis anterior, and gastrocnemius. she walks with a normal gait Tests Thoracic and lumbar x-rays are obtained today. No thoracic scoliosis seen. There is lumbar scoliosis centered at L2 that measures approximate 12-. Assessment Lumbar scoliosis Low back pain Previous Tests Imaging: X-Ray: An X-ray was performed 08/20/2022 @ [facility]. Available previous imaging studies were reviewed Available previous history reviewed Counseling/Education - Lose weight Plan We discussed treatment options. Recommend conservative treatment including weight loss. I think she would also benefit from a breast reduction she does have large breasts. This would certainly help take strain off of her back specially with the: Scoliotic deformity she has. Give her spine brochure of some core stabilization exercises no plan for spine surgery follow-up as needed Notes This dictation was done with voice recognition software and may contain errors and omissions. Practice Management Use of tobacco assessment performed. Care Team - Yadira Tyler PA-C - - Manpreet Fox MD
--- NOTE | 2024-06-04 11:20 | CT_ITS ---
FINAL REPORT TECHNIQUE: Thin section axial CT images with coronal and sagittal reformats were performed of the right foot. This study was performed with techniques to keep radiation doses as low as reasonably achievable (ALARA). Individualized dose reduction techniques using automated exposure control or adjustment of mA and/or kV according to the patient''s size were employed. CLINICAL HISTORY: Right Foot Pain prior sx to right foot COMPARISON: None FINDINGS: There are postsurgical changes from prior fusion of the subtalar, talonavicular, and calcaneocuboid joints. There are no fractures. 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 There is a small plantar spur. On coronal images, orthopedic anchors are noted in the medial and lateral malleoli. There are no masses or fluid collections. There are no soft tissue abnormalities. IMPRESSION: Stable changes of subtalar fusion. Reviewed, Interpreted and Dictated by Zan Heart MD Transcribed by Brandy Calle Authenticated and . [facility]
--- NOTE | 2024-06-04 13:15 | ECG_ITS ---
APPROVED REPORT Exam: Resting ECG HR:68 bpm ECG Measurements Heart Rate 68 AXES VA 142 P 37 QRSd 86 QRS -7 QT 382 T 21 QTc 399 Conclusion SINUS RHYTHM MODERATE VOLTAGE CRITERIA FOR LVH, CONSIDER NORMAL VARIANT [MEETS CRITERIA IN ONE OF: R(aVL), S(V1), R(V5), R(V5/V6)+S(V1)] BORDERLINE ECG UNCONFIRMED REPORT Electronically signed by : Naeem Fernandez MD 06/04/2024 16:19:09
[2024-06-04 14:25] LABS: Basophils % 0.4 % (0.1-2.0); Hemoglobin 11.1 g/dL (12.2-16.2); Lymphocytes # 1.4 K/mm3 (0.7-4.5); Mean Corpuscular HGB Conc 30.8 g/dL (31.8-35.4); Mean Corpuscular Volume 87.6 fl (81-99); Mean Platelet Volume 9.9 fl (7.4-10.4); Monocytes # 0.5 K/mm3 (0.1-1.0); Monocytes % 6.4 % (1.7-9.3); Neutrophils # 6.1 K/mm3 (1.8-7.8); Neutrophils % 75.9 % (37.0-80.0); Nucleated Red Blood Cells # 0 10^3/uL; Nucleated Red Blood Cells % 0 %; Platelet Count 342 K/mm3 (142-424); Red Blood Count 4.11 M/mm3 (4.20-5.40); Red Cell Distribution Width 17.2 % (11.5-17.5); Red Cell Distribution Width-SD 55.4 fL
[2024-06-04 14:56] LABS: Erythrocyte Sedimentation Rate 18 mm/hr (0-30)
[2024-06-04 15:55] LABS: Chloride 108 mmol/L (98-107); Potassium 4.8 mmoL/L (3.5-5.1); Sodium 139 mmol/L (136-145)
[2024-06-04 15:58] LABS: Alanine Aminotransferase 28 U/L (12-78); Albumin/Globulin Ratio 1.7 (1.1-1.8); Alkaline Phosphatase 115 U/L (38-126); Anion Gap 11.8 mEq/L (5-15); Aspartate Amino Transferase 29 U/L (14-36); Bilirubin,Total 0.2 mg/dl (0.2-1.3); Blood Urea Nitrogen 12 mg/dl (7-17); Calcium 9.7 mg/dl (8.4-10.2); Carbon Dioxide 24 mmol/L (22.0-30.0); Estimated Glomerular Filt Rate 58 ml/min (>60); GFR (African American) 71 ML/MIN (>60); Globulin 2.4 g/dL (1.3-3.2); Glucose 92 mg/dl (74-100); Total Protein,Serum 6.4 g/dl (6.3-8.2)
[2024-06-10 11:10] LABS: 1,25 Dihydroxy Vitamin D 37 pg/mL (.); 1,25-Dihydroxy, Vitamin D-2 20 pg/mL (.); 1,25-Dihydroxy, Vitamin D-3 17 pg/mL (.)
== END 2024-06-04 23:59 | disposition home or self-care (01) ==
LOC: RAD 10:32 → RT 12:59
PROVIDERS: PCP Physician Assistant; Visit Provider Podiatrist
DX: Z01.812 Encounter for preprocedural laboratory examination (principal); M19.071 Primary osteoarthritis, right ankle and foot; M79.671 Pain in right foot; Z96.9 Presence of functional implant, unspecified
CPT/HCPCS: 36415; 73700; 80053; 82652; 85025; 85651; 86140; 93005